=== PATIENT | female | born 1970 | race Caucasian/White ===

== ENCOUNTER 2020-05-30 19:25 | Emergency (ER) | payer OTHER ==
--- OUTSIDE RECORDS SUMMARY | 2020-05-30 19:27 | XMS REPORT | Summary of Care ---
:1970 Author Organization [facility] Address [address] [place] [address] Care Team Providers Name Role Phone MD Srikanth Primary Care Provider Reason for Visit Reason Comments Refill Request Encounter Details Date Type Department Care Team Description 03/26/2020 Refill [facility] Family Medicine Ross Anglin MD Refill Request - [address] [place] [address] [place] [address] [phone] Allergies No Known Allergiesdocumented as of this encounter (statuses as of 03/29/2020) Medications Medication Sig Dispensed Refills Start Date End Date Status lactulose 20 gram Take 1 Packet by 3 Packet 0 04/17/2017 Active packet mouth 3 (three) times daily. albuterol 90 Inhale 2 Puffs 8.5 g 0 05/06/2017 A ctive mcg/actuation inhaler every 4 (four) hours as needed for Wheezing or Shortness of Breath. SERTraline 100 mg TAKE 1 TABLET BY 0 08/20/2017 Active tablet MOUTH EVERY MORNING PROPRANOLOL HCL Take by mouth. 0 Active (PROPRANOLOL ORAL) busPIRone 10 mg tablet Take 1 tablet by 90 tablet 0 11/14/2017 Active mouth 3 (three) times daily. levothyroxine 75 mcg Take 1 tablet by 90 tablet 1 07/07/2019 Active tabletIndications: mouth every Hypothyroidism, morning. unspecified type ALPRAZOLAM 1 mg TAKE 1 TABLET BY 90 tablet 1 01/26/2020 Active tabletIndications: MOUTH THREE TIMES Anxiety A DAY NEEDED diclofenac 75 mg EC Take 1 tablet by 60 tablet 1 02/11/2020 Active tabletIndications: mouth 2 (two) Chronic pain of left times daily with ankle meals. PHENYTOIN EXTENDED 100 TAKE 3 CAPSULES 90 capsule 0 02/26/2020 Active mg capsuleIndications: BY MOUTH EVERY Seizure disorder DAY documented as of this encounter (statuses as of 03/29/2020) Active Problems Problem Noted Date Seizure disorder 10/16/2016 Anxiety 10/16/2016 Hypothyroidism 10/16/2016 Low vitamin B12 level 10/16/2016 documented as of this encounter (statuses as of 03/29/2020) Social History Tobacco Use Types Packs/Day Years Used Date Light Tobacco Smoker Smokeless Tobacco: Never Used Alcohol Use Drinks/Week oz/Week Comments No Sex Assigned at Date Recorded Not on file documented as of this encounter Last Filed Vital Signs Not on filedocumented in this encounter Plan of Treatment Health Maintenance Due Date Last Done Comments PNEUMOCOCCAL 0-64 YEARS COMBINED SERIES (1 of - 11/24/1977 PPSV23) DTaP,Tdap,and Td Vaccines (1 - Tdap) 11/24/1990 PAP SMEAR 11/24/1992 Breast Cancer Screening (MAMMOGRAM) 01/17/2017 01/18/2016 INFLUENZA VACCINE (#1) 2020 Depression Screening 12/22/2020 12/23/2019 Colorectal Cancer Screening 11/24/2021 documented as of this encounter Results Not on filedocumented in this encounter Visit Diagnoses Diagnosis Anxiety Anxiety state, unspecified documented in this encounter Insurance Payer Benefit Plan / Subscriber ID Effective Phone Address T ype Group Dates [employer]ER[employer]/KARRI [id number] 2020-Kristyn Coronel [facility] documented as of this encounter
--- OUTSIDE RECORDS SUMMARY | 2020-05-30 19:27 | XMS REPORT | Summary of Care ---
:1970 Author Organization [facility] Address [address] [place] [address] Care Team Providers Name Role Phone MD Srikanth Primary Care Provider Reason for Visit Reason Comments Refill Request Encounter Details Date Type Department Care Team Description 03/30/2020 Refill [facility] Family Medicine Ross Anglin MD Refill Request - [address] [place] [address] [place] [address] [phone] Allergies No Known Allergiesdocumented as of this encounter (statuses as of 03/31/2020) Medications Medication Sig Dispensed Refills Start Date End Date Status lactulose 20 gram Take 1 Packet 3 Packet 0 04/17/2017 Active packet by mouth 3 (three) times daily. albuterol 90 Inhale 2 Puffs 8.5 g 0 05/06/2017 A ctive mcg/actuation every 4 (four) inhaler hours as needed for Wheezing or Shortness of Breath. SERTraline 100 mg TAKE 1 TABLET 0 08/20/2017 Active tablet BY MOUTH EVERY MORNING PROPRANOLOL HCL Take by mouth. 0 Active (PROPRANOLOL ORAL) busPIRone 10 mg Take 1 tablet 90 tablet 0 11/14/2017 Active tablet by mouth 3 (three) times daily. diclofenac 75 mg EC Take 1 tablet 60 tablet 1 02/11/2020 Active tabletIndications: by mouth 2 Chronic pain of (two) times left ankle daily with meals. PHENYTOIN EXTENDED TAKE 3 CAPSULES 90 capsule 0 03/29/2020 Active 100 mg BY MOUTH EVERY capsuleIndications: DAY Seizure disorder ALPRAZOLAM 1 mg TAKE 1 TABLET 90 tablet 1 03/31/2020 Active tabletIndications: BY MOUTH THREE Anxiety TIMES A DAY NEEDED LEVOTHYROXINE 75 TAKE 1 TABLET 90 tablet 0 03/30/2020 Active mcg BY MOUTH EVERY tabletIndications: DAY IN THE Hypothyroidism, MORNING unspecified type levothyroxine 75 Take 1 tablet 90 tablet 1 07/07/2019 03/30/20 2 Discontinued mcg by mouth every 0 tabletIndications: morning. Hypothyroidism, unspecified type ALPRAZOLAM 1 mg TAKE 1 TABLET 90 tablet 1 01/26/2020 Discontinued tabletIndications: BY MOUTH THREE 0 Anxiety TIMES A DAY NEEDED documented as of this encounter (statuses as of 03/31/2020) Active Problems Problem Noted Date Seizure disorder 10/16/2016 Anxiety 10/16/2016 Hypothyroidism 10/16/2016 Low vitamin B12 level 10/16/2016 documented as of this encounter (statuses as of 03/31/2020) Social History Tobacco Use Types Packs/Day Years Used Date Light Tobacco Smoker Smokeless Tobacco: Never Used Alcohol Use Drinks/Week oz/Week Comments No Sex Assigned at Date Recorded Not on file documented as of this encounter Last Filed Vital Signs Not on filedocumented in this encounter Miscellaneous Notes Telephone Encounter - Clau Hernandez LVN - 03/30/2020 3:40 PM CDT 2 months ago (01/26/2020) ALPRAZOLAM 1 mg tablet TAKE 1 TABLET BY MOUTH THREE TIMES A DAY NEEDED Dispense: 90 tablet Refills: 1 Start: 01/26/2020 [id number] [place] [id number] Recent Visits Date Type Provider Dept 12/23/19 Office Visit Nash Jaffe MD [facility] 07/07/19 Office Visit Ross Duke MD [facility] 10/23/18 Office Visit Ross Duke MD [facility] Showing recent visits within past 540 days with a meds authorizing provider and meeting all other requirements Future Appointments No visits were found meeting these conditions. Showing future appointments within next 150 days with a meds authorizing provider and meeting all other requirements documented in this encounter Plan of Treatment Health [...] Visit Diagnoses Diagnosis Anxiety Anxiety state, unspecified Hypothyroidism, unspecified type documented in this encounter Insurance Payer Benefit Plan / Subscriber ID Effective Phone Address T ype Group Dates [facility] [id number] 2020-Kristyn Coronel [facility] documented as of this encounter
--- OUTSIDE RECORDS SUMMARY | 2020-05-30 19:27 | XMS REPORT | Summary of Care ---
:1970 Author Organization [facility] Address [address] [place] [address] Care Team Providers Name Role Phone MD Srikanth Primary Care Provider Reason for Visit Reason Comments Refill Request Encounter Details Date Type Department Care Team Description 03/28/2020 Refill [facility] Family Medicine Ross Anglin MD Refill Request - [address] [place] [address] [place] [address] [phone] Allergies No Known Allergiesdocumented as of this [...] tablet by mouth 3 (three) times daily. levothyroxine 75 Take 1 tablet 90 tablet 1 07/07/2019 Active mcg by mouth every tabletIndications: morning. Hypothyroidism, unspecified type ALPRAZOLAM 1 mg TAKE 1 TABLET 90 tablet 1 01/26/2020 Active tabletIndications: BY MOUTH THREE Anxiety TIMES A DAY NEEDED diclofenac 75 mg EC Take 1 tablet 60 tablet 1 02/11/2020 Active tabletIndications: by mouth 2 Chronic pain of (two) times left ankle daily with meals. PHENYTOIN EXTENDED TAKE 3 CAPSULES 90 capsule 0 03/29/2020 Active 100 mg BY MOUTH EVERY capsuleIndications: DAY Seizure disorder PHENYTOIN EXTENDED TAKE 3 CAPSULES 90 capsule 0 02/26/2020 Discontinued 100 mg BY MOUTH EVERY 0 capsuleIndications: DAY Seizure disorder documented as of this encounter (statuses as [...] filedocumented in this encounter Visit Diagnoses Diagnosis Seizure disorder Unspecified epilepsy without mention of intractable epilepsy documented in this encounter Insurance Payer Benefit Plan / Subscriber ID Effective Phone Address T ype Group Dates [employer]/KARRI [id number] 2020-Kristyn pruitt [facility] - MEDICARE [facility] MANAGED MEDICARE ADVANTAGE documented as of this encounter
--- OUTSIDE RECORDS SUMMARY | 2020-05-30 19:28 | XMS REPORT | Summary of Care ---
:1970 Author Organization [facility] Address [address] [place] [address] Care Team Providers Name Role Phone MD Srikanth Primary Care Provider Reason for Visit Reason Comments Anxiety Encounter Details Date Type Department Care Team Description 04/27/2020 Telemedicine Visit [facility] Family Ross Duke Anxiety (Primary Dx); Medicine - Estelle BARRON Drug-induced constipation [address] [place] [phone] Allergies No Known Allergiesdocumented as of this encounter (statuses as of 04/27/2020) Medications Medication Sig Dispensed Refills Start Date [...] MOUTH EVERY MORNING PROPRANOLOL HCL Take by 0 Acti ve (PROPRANOLOL ORAL) mouth. busPIRone 10 mg Take 1 tablet 90 tablet 0 11/14/2017 Active tablet by mouth 3 (three) times daily. LEVOTHYROXINE 75 TAKE 1 TABLET 90 tablet 0 03/30/2020 Active mcg BY MOUTH EVERY tabletIndications: DAY IN THE Hypothyroidism, MORNING unspecified type DICLOFENAC 75 mg TAKE 1 TABLET 60 tablet 1 04/14/2020 Active EC BY MOUTH TWICE tabletIndications: A DAY WITH Chronic pain of MEALS left ankle PHENYTOIN EXTENDED TAKE 3 90 capsule 0 04/23/2020 Active 100 mg CAPSULES BY capsuleIndications MOUTH EVERY : Seizure disorder DAY ALPRAZolam 1 mg TAKE 1 TABLET 90 tablet 2 04/27/2020 Active tabletIndications: BY MOUTH THREE Anxiety TIMES A DAY NEEDED linaCLOtide Take 1 capsule 30 capsule 2 04/27/2020 A ctive (LINZESS) 145 mcg by mouth capsuleIndications daily. : Drug-induced constipation ALPRAZOLAM 1 mg TAKE 1 TABLET 90 tablet 1 03/31/2020 04/27/20 Discontinued tabletIndications: BY MOUTH THREE 20 (Reorder) Anxiety TIMES A DAY NEEDED documented as of this encounter (statuses as of 04/27/2020) Active Problems Problem Noted Date Seizure disorder 10/16/2016 Anxiety 10/16/2016 Hypothyroidism 10/16/2016 Low vitamin B12 level 10/16/2016 documented as of this encounter (statuses as of 04/27/2020) Social History Tobacco Use Types Packs/Day Years Used Date Light Tobacco Smoker Smokeless Tobacco: Never Used Alcohol Use Drinks/Week oz/Week Comments No Sex Assigned at Date Recorded Not on file documented as of this encounter Last Filed Vital Signs Not on filedocumented in this encounter Progress Notes Ross Duke MD - 04/27/2020 10:00 AM CDT TELEHEALTH NOTE Verbal consent obtained from Patient: Katy Holman due to the COVID-19 pandemic for telehealthservices provided below. Communication with patient was conducted via Telephone due to patient unable to obtain video call option. Location of Patient: Home Location of Provider: Office Date of Service: 04/27/2020 Chief Complaint: anxiety HPI: Katy Holman is a 49 year old female with anxiety, chronic constipation, would like to get back on linzess Past Medical History: Diagnosis Date Hypothyroidism Mitral valve prolapse Seizures MEDICATIONS: Current Outpatient Medications Medication Sig Dispense Refill PHENYTOIN EXTENDED 100 mg capsule TAKE 3 CAPSULES BY MOUTH EVERY DAY 90 capsule 0 DICLOFENAC 75 mg EC tablet TAKE 1 TABLET BY MOUTH TWICE A DAY WITH MEALS 60 tablet 1 ALPRAZOLAM 1 mg tablet TAKE 1 TABLET BY MOUTH THREE TIMES A DAY NEEDED 90 tablet 1 LEVOTHYROXINE 75 mcg tablet TAKE 1 TABLET BY MOUTH EVERY DAY IN THE MORNING 90 tablet 0 busPIRone 10 mg tablet Take 1 tablet by mouth 3 (three) times daily. 90 tablet 0 PROPRANOLOL HCL (PROPRANOLOL ORAL) Take by mouth. SERTraline 100 mg tablet TAKE 1 TABLET BY MOUTH EVERY MORNING 0 albuterol 90 mcg/actuation inhaler Inhale 2 Puffs every 4 (four) hours as needed for Wheezing orShortness of Breath. 8.5 g 0 lactulose 20 gram packet Take 1 Packet by mouth 3 (three) times daily. 3 Packet 0 No current facility-administered medications for this visit. ROS Constipation, otherwise ok TELEHEALTH EXAM Alert,no distress ASSESSMENT/ PLAN Katy Arabella Holman is a 49 year old female with PMH as above presenting with: anxiety, stable, medication refill, medication related constipation, linzess After visit summary (AVS ) documentation will be available through [employer] for this encounter. A total of 15 minutes was spent on the Telephone due to patient unable to obtain video call option. Ross Duke MD documented in this encounter Plan of Treatment [...] in this encounter Visit Diagnoses Diagnosis Anxiety - Primary Anxiety state, unspecified Drug-induced constipation Other constipation documented in this encounter Insurance Payer Benefit Plan / Subscriber ID Effective Phone Address T ype Group Dates [facility] [id number] 2020-Kristyn Coronel [facility] - MEDICARE HMO MANAGED MEDICARE ADVANTAGE documented as of this encounter
--- OUTSIDE RECORDS SUMMARY | 2020-05-30 19:28 | XMS REPORT | Summary of Care ---
:1970 Author Organization [facility] Address [address] [place] [address] Care Team Providers Name Role Phone MD Srikanth Primary Care Provider Reason for Visit Reason Comments Refill Request Encounter Details Date Type Department Care Team Description 05/19/2020 Refill [facility] Family Medicine Ross Anglin MD Refill Request - [address] [place] [address] [place] [address] [phone] Allergies No Known Allergiesdocumented as of this encounter (statuses as of 05/19/2020) Medications Medication Sig Dispensed Refills Start Date [...] Hypothyroidism, MORNING unspecified type DICLOFENAC 75 mg EC TAKE 1 TABLET 60 tablet 1 04/14/2020 Active tabletIndications: BY MOUTH TWICE Chronic pain of A DAY WITH left ankle MEALS ALPRAZolam 1 mg TAKE 1 TABLET 90 tablet 2 04/27/2020 Active tabletIndications: BY MOUTH THREE Anxiety TIMES A DAY NEEDED linaCLOtide Take 1 capsule 30 capsule 2 04/27/2020 A ctive (LINZESS) 145 mcg by mouth daily. capsuleIndications: Drug-induced constipation PHENYTOIN EXTENDED TAKE 3 CAPSULES 90 capsule 0 05/19/2020 Active 100 mg BY MOUTH EVERY capsuleIndications: DAY Seizure disorder PHENYTOIN EXTENDED TAKE 3 CAPSULES 90 capsule 0 04/23/2020 Discontinued 100 mg BY MOUTH EVERY 0 capsuleIndications: DAY Seizure disorder documented as of this encounter (statuses as of 05/19/2020) Active Problems Problem Noted Date Seizure disorder 10/16/2016 Anxiety 10/16/2016 Hypothyroidism 10/16/2016 Low vitamin B12 level 10/16/2016 documented as of this encounter (statuses as of 05/19/2020) Social History Tobacco Use Types Packs/Day Years [...] Address T ype Group Dates [employer]/KARRI [id number] 2020-Kristyn pruitt [facility]IC[facility] documented as of this encounter
--- OUTSIDE RECORDS SUMMARY | 2020-05-30 19:28 | XMS REPORT | Summary of Care ---
:1970 Author Organization [facility] Address [address] [place] [address] Care Team Providers Name Role Phone MD Srikanth Primary Care Provider Reason for Visit Reason Comments Refill Request Encounter Details Date Type Department Care Team Description 04/14/[address] [facility] Orthopaedic Julius Becerra MD Refill Request Surgery- [place] [address] [facility] [address] [facility], [place] [address] [place] [address] [phone] Allergies No Known Allergiesdocumented as of this encounter (statuses as of 04/14/2020) Medications Medication Sig Dispensed Refills Start Date [...] tablet by mouth 3 (three) times daily. PHENYTOIN EXTENDED TAKE 3 CAPSULES 90 capsule [...] of A DAY WITH left ankle MEALS diclofenac 75 mg EC Take 1 tablet 60 tablet 1 02/11/202004/14 Discontinued tabletIndications: by mouth 2 0 Chronic pain of (two) times left ankle daily with meals. documented as of this encounter (statuses as of 04/14/2020) Active Problems Problem Noted Date Seizure disorder 10/16/2016 Anxiety 10/16/2016 Hypothyroidism 10/16/2016 Low vitamin B12 level 10/16/2016 documented as of this encounter (statuses as of 04/14/2020) Social History Tobacco Use Types Packs/Day Years [...] filedocumented in this encounter Visit Diagnoses Diagnosis Chronic pain of left ankle documented in this encounter Insurance Payer Benefit Plan / Subscriber ID Effective Phone Address T ype Group Dates [employer]/KARRI [id number] 2020-Kristyn Coronel [facility] documented as of this encounter
--- OUTSIDE RECORDS SUMMARY | 2020-05-30 19:28 | XMS REPORT | Summary of Care ---
:1970 Author Organization [facility] Address [address] [place] [address] Care Team Providers Name Role Phone MD Srikanth Primary Care Provider Reason for Visit Reason Comments Refill Request Encounter Details Date Type Department Care Team Description 05/27/2020 Refill [facility] Family Medicine Ross Anglin MD Refill Request - [address] [place] [address] [place] [address] [phone] Allergies No Known Allergiesdocumented as of this encounter (statuses as of 05/27/2020) Medications Medication Sig Dispensed Refills Start Date [...] 11/14/2017 Active mouth 3 (three) times daily. LEVOTHYROXINE 75 mcg TAKE 1 TABLET BY 90 tablet 0 03/30/2020 Active tabletIndications: MOUTH EVERY DAY Hypothyroidism, IN THE MORNING unspecified type DICLOFENAC 75 mg EC TAKE 1 TABLET BY 60 tablet 1 04/14/2020 Active tabletIndications: MOUTH TWICE A DAY Chronic pain of left WITH MEALS ankle ALPRAZolam 1 mg TAKE 1 TABLET BY 90 tablet 2 04/27/2020 Active tabletIndications: MOUTH THREE TIMES Anxiety A DAY NEEDED linaCLOtide (LINZESS) Take 1 capsule by 30 capsule 2 0 Active 145 mcg mouth daily. capsuleIndications: Drug-induced constipation PHENYTOIN EXTENDED 100 TAKE 3 CAPSULES 90 capsule 0 05/19/2020 Active mg capsuleIndications: BY MOUTH EVERY Seizure disorder DAY documented as of this encounter (statuses as of 05/27/2020) Active Problems Problem Noted Date Seizure disorder 10/16/2016 Anxiety 10/16/2016 Hypothyroidism 10/16/2016 Low vitamin B12 level 10/16/2016 documented as of this encounter (statuses as of 05/27/2020) Social History Tobacco Use Types Packs/Day Years [...] filedocumented in this encounter Visit Diagnoses Diagnosis Hypothyroidism, unspecified type documented in this encounter Insurance Payer Benefit Plan / Subscriber ID Effective Phone Address T ype Group Dates [employer]/KARRI [id number] 2020-Kristyn pruitt [facility] - MEDICARE [facility] MANAGED MEDICARE ADVANTAGE documented as of this encounter
--- OUTSIDE RECORDS SUMMARY | 2020-05-30 19:28 | XMS REPORT | Summary of Care ---
:1970 Author Organization [facility] Address [address] [place] [address] Care Team Providers Name Role Phone MD Srikanth Primary Care Provider Reason for Visit Reason Comments Refill Request Encounter Details Date Type Department Care Team Description 04/22/2020 Refill [facility] Family Medicine Ross Anglin MD Refill Request - [address] [place] [address] [place] [address] [phone] Allergies No Known Allergiesdocumented as of this encounter (statuses as of 04/23/2020) Medications Medication Sig Dispensed Refills Start Date [...] tablet by mouth 3 (three) times daily. ALPRAZOLAM 1 mg TAKE 1 TABLET 90 [...] of A DAY WITH left ankle MEALS PHENYTOIN EXTENDED TAKE 3 CAPSULES 90 capsule 0 04/23/2020 Active 100 mg BY MOUTH EVERY capsuleIndications: DAY Seizure disorder PHENYTOIN EXTENDED TAKE 3 CAPSULES 90 capsule 0 03/29/2020 Discontinued 100 mg BY MOUTH EVERY 0 capsuleIndications: DAY Seizure disorder documented as of this encounter (statuses as of 04/23/2020) Active Problems Problem Noted Date Seizure disorder 10/16/2016 Anxiety 10/16/2016 Hypothyroidism 10/16/2016 Low vitamin B12 level 10/16/2016 documented as of this encounter (statuses as of 04/23/2020) Social History Tobacco Use Types Packs/Day Years Used Date Light Tobacco Smoker Smokeless Tobacco: Never Used Alcohol Use Drinks/Week oz/Week Comments No Sex Assigned at Date Recorded Not on file documented as of this encounter Last Filed Vital Signs Not on filedocumented in this encounter Plan of Treatment Date Type Specialty Care Team Description 04/27/2020 Telemedicine Visit Family Medicine Elva Duke MD [address] [place] [address] [phone] Health Maintenance Due Date Last Done Comments [...] Phone Address T ype Group Dates [facility] [id number] 2020-Kristyn pruitt [facility] - MEDICARE [facility] MANAGED MEDICARE ADVANTAGE documented as of this encounter
[2020-05-30 19:54] LABS: Urine Blood NEGATIVE (NEG); Urine Glucose NEGATIVE (NEG); Urine Protein NEGATIVE (NEG); Urine Specific Gravity >1.030 (1.005-1.030)
[2020-05-30 19:56] LABS: Absolute Lymphocytes (CBC) 2.9 K/uL (0.7-4.9); Basophils % 0.7 % (0-1.3); Hematocrit 39.2 % (36.0-45.0); Lymphocytes % 27.9 % (15.3-44.8); MPV 7.6 fL (7.6-11.3)
[2020-05-30] MEDS ORDERED: MORPHINE 4 MG/ML SYR ONE (20:06)
[2020-05-30] MEDS ORDERED: ONDANSETRON 4 MG/2 ML VIAL ONE (20:07)
--- NOTE | 2020-05-30 20:32 | RAD REPORT ---
EXAM DESCRIPTION: CT - Stone Protocol - 05/30/2020 8:05 pm CLINICAL HISTORY: ABD PAIN COMPARISON: No comparisons TECHNIQUE: Axial 3 mm thick images were obtained without oral or IV contrast. The [id number] span s the entirety of the system including uppermost abdomen and lung bases. All CT scans are performed using dose optimization technique as appropriate and may include automated exposure control or mA/KV adjustment according to patient size. FINDINGS: Trace pleural effusions seen in each lung base. No hydronephrosis is present and no obstructing ureteral calculi. No suspicious renal masses. Isodens e masses and pyelonephritis are not excluded on a stone protocol CT scan. No significant adrenal find ing. No urinary bladder suspicious finding. Uterus is absent. No ovarian abnormality. Imaged portions of the liver, spleen and pancreas show no suspicious findings on non-contrast imaging . Cholecystectomy clips are present. No biliary tree dilatation. Large quantity of food distends the stomach. No gastric wall thickening or gastric wall mass. No dila romeo large or small bowel loops. Moderate stool volume in the right-side of the colon. The appendix is identified normal. No active GI process seen. No mass or bulky lymphadenopathy. A 3 centimeter periumbilical midline ventral hernia present contain ing only fat no mass or bulky lymphadenopathy. No free air, free fluid or inflammatory stranding. No significant bony abnormality. IMPRESSION: No appendicitis or other acute GI process. 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 No abnormality that would explain right lower quadrant pain pattern.
--- NOTE | 2020-05-30 20:41 | EDPHYS ---
Physician Documentation [facility] Name: Katy Holman Age: 49 yrs Sex: Female : 1970 Arrival Date: 05/30/2020 Time: 19:28 Bed 19 Private MD: ED Physician Brown Norton HPI: 05/30 20:58 This 49 yrs old Female presents to ER via Ambulatory with complaints of Lower kb Abdominal Pain. 21:00 The patient presents with abdominal pain right lower quadrant. Onset: The kb symptoms/episode began/occurred 3 hour(s) ago. The symptoms do not radiate. Associated signs and symptoms: none. The symptoms are described as constant. Modifying factors: The symptoms are alleviated by nothing, the symptoms are aggravated by pressure. Severity of pain: At its worst the pain was moderate in the emergency department the pain is unchanged. The patient has not experienced similar symptoms in the past. The patient has not recently seen a physician. 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 - Social history:: Smoking status: Patient reports the use of cigarette tobacco products, smokes one-half pack cigarettes per day. ROS: 20:57 Constitutional: Negative for fever, chills, and weight loss, Cardiovascular: Negative kb for chest pain, palpitations, and edema, Respiratory: Negative for shortness of breath, cough, wheezing, and pleuritic chest pain, : Negative for injury, bleeding, discharge, and swelling, MS/Extremity: Negative for injury and deformity, Skin: Negative for injury, rash, and discoloration, Neuro: Negative for headache, weakness, numbness, tingling, and seizure. 20:57 Abdomen/GI: Positive for abdominal pain, Negative for nausea, vomiting, and diarrhea. Exam: 20:57 Constitutional: This is a well developed, well nourished patient who is awake, alert, kb and in no acute distress. Head/Face: Normocephalic, atraumatic. Chest/axilla: Normal chest wall appearance and motion. Nontender with no deformity. No lesions are appreciated. Cardiovascular: Regular rate and rhythm with a normal S1 and S2. No gallops, murmurs, or rubs. Normal PMI, no JVD. No pulse deficits. Respiratory: Lungs have equal breath sounds bilaterally, clear to auscultation and percussion. No rales, rhonchi or wheezes noted. No increased work of breathing, no retractions or nasal flaring. Back: No spinal tenderness. No costovertebral tenderness. Full range of motion. Skin: Warm, dry with normal turgor. Normal color with no rashes, no lesions, and no evidence of cellulitis. MS/ Extremity: Pulses equal, no cyanosis. Neurovascular intact. Full, normal range of motion. Neuro: Awake and alert, GCS 15, oriented to person, place, time, and situation. Cranial nerves II-XII grossly intact. Motor strength 5/5 in all extremities. Sensory grossly intact. Cerebellar exam normal. Normal gait. 20:57 Abdomen/GI: Inspection: abdomen appears normal, Bowel sounds: normal, in all quadrants, Palpation: soft, in all quadrants, moderate abdominal tenderness, in the right lower quadrant. Vital Signs: 19:32 BP 120 / 74; Pulse 87; Resp 16 S; Temp 97.8(TE); Pulse Ox 98% on R/A; Weight 81.65 kg ca1 (R); Height 5 ft. 4 in. (162.56 cm) (R); Pain 5/10; 20:40 BP 122 / 68; Pulse 80; Resp 18; Pulse Ox 98% on R/A; ea 19:32 Body Mass Index 30.90 (81.65 kg, 162.56 cm) ca1 MDM: 19:36 Patient medically screened. kb 20:57 Data reviewed: vital signs, nurses notes. Data interpreted: Pulse oximetry: on room air kb is 98 %. Interpretation: normal. Counseling: I had a detailed discussion with the patient and/or guardian regarding: the historical points, exam findings, and any diagnostic results supporting the discharge/admit diagnosis, lab results, radiology results, the need for outpatient follow up, a family practitioner, to return to the emergency department if symptoms worsen or persist or if there are any questions or concerns that arise at home. 05/30 19:35 Order name: Basic Metabolic Panel; Complete Time: 20:12 kb 05/30 19:35 Order name: CBC with Diff; Complete Time: 20:10 kb 05/30 19:44 Order name: CT Stone Protocol; Complete Time: 20:35 kb 05/30 19:49 Order name: Urine --Ancillary (enter results); Complete Time: 19:58 tt3 05/30 19:49 Order name: Urine Dipstick--Ancillary (enter results); Complete Time: 19:58 tt3 05/30 19:35 Order name: IV Saline Lock; Complete Time: 19:52 kb 05/30 19:35 Order name: Labs collected and sent; Complete Time: 19:53 kb 05/30 19:35 Order name: Urine Dipstick-Ancillary (obtain specimen); Complete Time: 19:53 kb Administered Medications: 19:55 Drug: Zofran (Ondansetron) 4 mg Route: IVP; Site: left antecubital; ea 19:58 Drug: morphine 4 mg {Note: rass 0.} Route: IVP; Site: left antecubital; ea Disposition: 05/31 02:12 Co-signature as Attending Physician, Brown Norton MD. 7 Disposition: 05/30/20 20:40 Discharged to Home. Impression: Lower abdominal pain, unspecified. - Condition is Stable. - Discharge Instructions: Abdominal Pain, Adult, [id number], Muscle Strain, Tqvs-al-[id number]. - Prescriptions for Diclofenac Sodium 75 mg Oral Tablet, Delayed Release (E.C.) - take 1 tablet by ORAL route 2 times per day As needed; 30 tablet. - Medication Reconciliation Form, Thank You Letter, Antibiotic Education, Prescription Opioid Use form. - Follow up: Emergency Department; When: As needed; Reason: Worsening of condition. Follow up: Private Physician; When: 2 - 3 days; Reason: Recheck today's complaints, Continuance of care, Re-evaluation by your physician. Signatures: Dispatcher [employer] Stephanie Cam FNP-C FNP-Ckb Antunez, Elena, RN RN ea Acob, Cheryl, RN RN ca1 Holmes, Maurice, MD MD [id number] Corrections: (The following items were deleted from the chart) 05/30 20:47 20:40 05/30/2020 20:40 Discharged to Home. Impression: Lower abdominal pain, ea unspecified. Condition is Stable. Forms are Medication Reconciliation Form, Thank You Letter, Antibiotic Education, Prescription Opioid Use. Follow up: Emergency Department; When: As needed; Reason: Worsening of condition. Follow up: Private Physician; When: 2 - 3 days; Reason: Recheck today's complaints, Continuance of care, Re-evaluation by your physician. kb
--- NOTE | 2020-05-30 20:41 | ER ---
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 ca1 Pain is intermittent, sharp and jabbing. Denies N/V/D. Denies urinary symptoms. Coronavirus screen: Client denies travel out of the [place] in the last 14 days. At this time, the client does not indicate any symptoms associated with coronavirus-19. Ebola Screen: Patient negative for fever greater than or equal to 101.5 degrees Fahrenheit, and additional compatible Ebola Virus Disease symptoms Patient denies exposure to infectious person. Patient denies travel to an Ebola-affected area in the 21 days before illness onset. No symptoms or risks identified at this time. Initial Sepsis Screen: Does the patient meet any 2 criteria? No. Patient's initial sepsis screen is negative. Does the patient have a suspected source of infection? No. Patient's initial sepsis screen is negative. Risk Assessment: Do you want to hurt yourself or someone else? Patient reports no desire to harm self or others. Onset of symptoms was May 30, 2020. 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 - Social history:: Smoking status: Patient reports the use of cigarette tobacco products, smokes one-half pack cigarettes per day. Screenin:59 Abuse screen: Denies threats or abuse. Nutritional screening: No deficits noted. ea Tuberculosis screening: No symptoms or risk factors identified. Fall Risk IV access (20 points). Assessment: 20:00 Reassessment: Patient and/or family updated on plan of care and expected duration. Pain ea level reassessed. Patient is alert, oriented x 3, equal unlabored respirations, skin warm/dry/pink. Pt taken to CT. 20:45 Reassessment: Patient and/or family updated on plan of care and expected duration. Pain ea level reassessed. Patient is alert, oriented x 3, equal unlabored respirations, skin warm/dry/pink. Discharge instruction given to patient, verbalized the understanding of instruction. Pt left ED ambulatory tolerating well. Pt accompanied by significant other Patient states feeling better. Vital Signs: 19:32 BP 120 / 74; Pulse 87; Resp 16 S; Temp 97.8(TE); Pulse Ox 98% on R/A; Weight 81.65 kg ca1 (R); Height 5 ft. 4 in. (162.56 cm) (R); Pain 5/10; 20:40 BP 122 / 68; Pulse 80; Resp 18; Pulse Ox 98% on R/A; ea 19:32 Body Mass Index 30.90 (81.65 kg, 162.56 cm) ca1 ED Course: 19:28 Patient arrived in ED. bp1 19:29 Stephanie Weaver FNP-C is PHCP. kb 19:29 Brown Norton MD is Attending Physician. kb 19:34 Triage completed. ca1 19:35 Arm band placed on right wrist. ca1 19:39 Porsha Adams, CLYDE is Primary Nurse. ea 19:45 Patient has correct armband on for positive identification. Placed in gown. Bed in low ea position. Call light in reach. Side rails up X2. 19:45 Inserted saline lock: 20 gauge in left antecubital area, using aseptic technique. Blood ea collected. 20:05 CT Stone Protocol In Process Unspecified. EDMS 20:45 IV discontinued, intact, bleeding controlled, No redness/swelling at site. Pressure ea dressing applied. Administered Medications: 19:55 Drug: Zofran (Ondansetron) 4 mg Route: IVP; Site: left antecubital; ea 19:58 Drug: morphine 4 mg {Note: rass 0.} Route: IVP; Site: left antecubital; ea Outcome: 20:40 Discharge ordered by . kb 20:45 Discharged to home ambulatory, with family. ea 20:45 Condition: stable 20:45 Discharge instructions given to patient, Instructed on discharge instructions, follow up and referral plans. Demonstrated understanding of instructions, follow-up care. 20:47 Patient left the ED. ea Signatures: Dispatcher [employer] Stephanie Cam, ELLA SEQUEIRA-Porsha Vazquez RN Diane Kenny ea RN Stephenie Mccabe
[2020-05-30 23:38] VITALS: BP 120/74; TEMP 97.8; O2SAT 98
== END 2020-05-30 20:47 | disposition home or self-care (01) ==
LOC: ER 19:25
DX: R10.31 Right lower quadrant pain (principal); F17.210 Nicotine dependence, cigarettes, uncomplicated
CPT/HCPCS: 85025; 80048; 36415; 81025; 81003; 76377; 74176; 96375; 96374; 99284; J2405

== ENCOUNTER 2020-12-15 03:18 | Emergency (ER) | payer OTHER, SELFPAY ==
[2020-12-15] MEDS ORDERED: PANTOPRAZOLE 40 MG INJ ONE (04:49)
[2020-12-15] MEDS ORDERED: NA CHLORIDE 0.9% 1,000 ML ONE (04:49)
[2020-12-15] MEDS ORDERED: ONDANSETRON 4 MG/2 ML VIAL ONE (04:49)
[2020-12-15 04:56] LABS: Absolute Lymphocytes (CBC) 1.4 K/uL (0.7-4.9); Basophils % 0.5 % (0-1.3); Hematocrit 39.9 % (36.0-45.0); Lymphocytes % 12.1 % (15.3-44.8); MPV 7.5 fL (7.6-11.3); RBC Red Blood Cell Count 4.46 M/uL (3.86-4.86)
--- NOTE | 2020-12-15 06:24 | ER ---
Nurse's Notes [facility] Name: Katy Holman Age: 50 yrs Sex: Female : 1970 Arrival Date: 12/15/2020 Time: 03:19 Bed 19 Private MD: Bubba Castaneda Diagnosis: Vomiting, unspecified;Hematemesis Presentation: 12/15 03:31 Chief complaint: Patient states: she was seen in [facility] earlier yesterday for bb a migraine and vomiting was worked-up and sent home she went to sleep and woke up vomiting blood. She has been feeling ill for several days prior to this and not eating much either. Coronavirus screen: headache, vomiting. Client presents with at least one sign or symptom that may indicate coronavirus-19. Standard/surgical mask placed on the client. Ebola Screen: No symptoms or risks identified at this time. Initial Sepsis Screen: Does the patient meet any 2 criteria? No. Patient's initial sepsis screen is negative. Does the patient have a suspected source of infection? No. Patient's initial sepsis screen is negative. Risk Assessment: Do you want to hurt yourself or someone else? Patient reports no desire to harm self or others. Onset of symptoms was December 15, 2020. 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 - Social history:: Smoking status: Patient/guardian denies using tobacco, Stopped _ months ago 2. - Family history:: not pertinent. - Hospitalizations: : No recent hospitalization is reported. Screenin:57 Abuse screen: Denies threats or abuse. Nutritional screening: No deficits noted. ea Tuberculosis screening: No symptoms or risk factors identified. Fall Risk None identified. Assessment: 04:56 General: Appears uncomfortable, Behavior is calm, cooperative, appropriate for age. ea Pain: Denies pain. Neuro: Level of Consciousness is awake, alert, obeys commands, Oriented to person, place, time. Respiratory: Airway is patent Respiratory effort is even, unlabored, Respiratory pattern is regular, symmetrical. GI: Abdomen is non-distended. Derm: Skin is pink, warm \T\ dry. 06:44 Reassessment: Patient and/or family updated on plan of care and expected duration. Pain ea level reassessed. Patient is alert, oriented x 3, equal unlabored respirations, skin warm/dry/pink. Discharge instruction given to patient verbalized the understanding of instruction. Pt left ED ambulatory accompanied by family, pt tolerating well. Vital Signs: 03:31 BP 126 / 83; Pulse 112; Resp 16 S; Temp 99(O); Pulse Ox 98% on R/A; Weight 90.72 kg bb (R); Height 5 ft. 4 in. (162.56 cm) (R); Pain 0/10; 06:28 BP 126 / 86; Pulse 82; Resp 18; Pulse Ox 99% ; ea 03:31 Body Mass Index 34.33 (90.72 kg, 162.56 cm) bb ED Course: 03:19 Patient arrived in ED. am4 03:19 Bubba Castaneda DO is Private Physician. am4 03:33 Triage completed. bb 03:36 Arm band placed on Patient placed in an exam room, on a stretcher, on pulse oximetry. bb Family accompanied patient. 03:44 Seth Montano MD is Attending Physician. rn 04:27 Porsha Adams, CLYDE is Primary Nurse. ea 04:57 Patient has correct armband on for positive identification. Bed in low position. Call ea light in reach. 04:57 Inserted saline lock: 20 gauge in left antecubital area, using aseptic technique. ea 06:22 Jhonny Vincent MD is Referral Physician. rn 06:30 No provider procedures requiring assistance completed. ea 06:45 IV discontinued, intact, bleeding controlled, No redness/swelling at site. Pressure ea dressing applied. Administered Medications: 04:42 Drug: NS 0.9% 1000 ml Route: IV; Rate: 1000 ml; Site: left antecubital; ea 06:46 Follow up: Response: No adverse reaction; IV Status: Completed infusion; IV Intake: ea 1000ml 04:42 Drug: Zofran (Ondansetron) 4 mg Route: IVP; Site: left antecubital; ea 06:46 Follow up: Response: No adverse reaction ea 04:42 Drug: ProTONIX (pantoprazole) 40 mg Route: IVP; Site: left antecubital; ea 06:46 Follow up: Response: No adverse reaction ea Intake: 06:46 IV: 1000ml; Total: 1000ml. ea Outcome: 06:23 Discharge ordered by . rn 06:45 Discharged to home ambulatory, with family. ea 06:45 Condition: stable 06:45 Discharge instructions given to patient, Instructed on discharge instructions, follow up and referral plans. Demonstrated understanding of instructions, follow-up care. 06:45 Patient left the ED. ea Signatures: Gale Giron RN RN bb Nieto, Roman, MD MD rn Antunez, Elena, RN RN ea Martinez, Ashley am4
--- NOTE | 2020-12-15 06:24 | EDPHYS ---
Physician Documentation [facility] Name: Katy Holman Age: 50 yrs Sex: Female : 1970 Arrival Date: 12/15/2020 Time: 03:19 Bed 19 Private MD: Bubba Castaneda ED Physician Seth Montano HPI: 12/15 05:21 This 50 yrs old Female presents to ER via Wheelchair with complaints of rn Vomiting. 05:21 The patient presents to the emergency department with nausea, vomiting. Onset: The rn symptoms/episode began/occurred yesterday. Possible causes: unknown. The symptoms are aggravated by nothing. The symptoms are alleviated by nothing. Associated signs and symptoms: Pertinent negatives: abdominal pain, fever. Severity of symptoms: At their worst the symptoms were moderate in the emergency department the symptoms have improved. The patient has not experienced similar symptoms in the past. The patient has been recently seen by a physician:. Seen yesterday at [place] [facility], for migraine and vomiting, ct head neg, and bloodwork/UA negative. Reports headache has resolved, but still nauseous, threw up again when woke up this AM and had small amount of blood in it so panicked and came in for eval. Not on blood thinners, no abd pain. . 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 - Social history:: Smoking status: Patient/guardian denies using tobacco, Stopped _ months ago 2. - Family history:: not pertinent. - Hospitalizations: : No recent hospitalization is reported. ROS: 05:21 Constitutional: Negative for fever, chills, and weight loss, Eyes: Negative for injury, rn pain, redness, and discharge, Neck: Negative for injury, pain, and swelling, Cardiovascular: Negative for chest pain, palpitations, and edema, Respiratory: Negative for shortness of breath, cough, wheezing, and pleuritic chest pain, Abdomen/GI: Negative for abdominal pain, diarrhea, and constipation, Back: Negative for injury and pain, : Negative for injury, bleeding, discharge, and swelling, MS/Extremity: Negative for injury and deformity, Skin: Negative for injury, rash, and discoloration, Neuro: Negative for headache, weakness, numbness, tingling, and seizure. Exam: 05:21 Constitutional: This is a well developed, well nourished patient who is awake, alert, rn and in no acute distress. Head/Face: Normocephalic, atraumatic. Eyes: Pupils equal round and reactive to light, extra-ocular motions intact. Periorbital areas with no swelling, redness, or edema. Cardiovascular: Tachycardic, regular Respiratory: No increased work of breathing, no retractions or nasal flaring. Abdomen/GI: soft, non-tender Skin: Warm, dry MS/ Extremity: Pulses equal, no cyanosis. Neuro: Awake and alert, GCS 15, oriented to person, place, time, and situation. Cranial nerves II-XII grossly intact. Motor strength 5/5 in all extremities. Sensory grossly intact. Cerebellar exam normal. Vital Signs: 03:31 BP 126 / 83; Pulse 112; Resp 16 S; Temp 99(O); Pulse Ox 98% on R/A; Weight 90.72 kg bb (R); Height 5 ft. 4 in. (162.56 cm) (R); Pain 0/10; 06:28 BP 126 / 86; Pulse 82; Resp 18; Pulse Ox 99% ; ea 03:31 Body Mass Index 34.33 (90.72 kg, 162.56 cm) bb MDM: 03:44 Patient medically screened. rn 05:36 Differential diagnosis: gastritis, viral gastroenteritis, gastroenteritis, gastritis, rn neisha-real tear, esophagitis. Data reviewed: vital signs, nurses notes, lab test result(s), and as a result, I will discharge patient. Counseling: I had a detailed discussion with the patient and/or guardian regarding: the historical points, exam findings, and any diagnostic results supporting the discharge/admit diagnosis, lab results, the need for outpatient follow up, to return to the emergency department if symptoms worsen or persist or if there are any questions or concerns that arise at home. Response to treatment: the patient's symptoms have markedly improved after treatment, and as a result, I will discharge patient. Response to treatment: tolerates PO, no longer vomiting. Special discussion: I discussed with the patient/guardian in detail that at this point there is no indication for admission to the hospital. It is understood, however, that if the symptoms persist or worsen the patient needs to return immediately for re-evaluation. 06:21 ED course: Pt feels much better, no longer nauseated, no vomiting. Most likely small rn tear after numerous episodes of vomiting and dry heaving. Stable vitals, will dc home with soft/liquid diet and return precautions. . 06:23 ED course: No drop in hemoglobin compared to labs obtained at [facility]. . rn 12/15 04:04 Order name: CBC with Diff; Complete Time: 05:07 rn 12/15 04:04 Order name: Basic Metabolic Panel; Complete Time: 05: rn 12/15 04:04 Order name: IV Start; Complete Time: 05:09 rn Administered Medications: 04:42 Drug: NS 0.9% 1000 ml Route: IV; Rate: 1000 ml; Site: left antecubital; ea 06:46 Follow up: Response: No adverse reaction; IV Status: Completed infusion; IV Intake: ea 1000ml 04:42 Drug: Zofran (Ondansetron) 4 mg Route: IVP; Site: left antecubital; ea 06:46 Follow up: Response: No adverse reaction ea 04:42 Drug: ProTONIX (pantoprazole) 40 mg Route: IVP; Site: left antecubital; ea 06:46 Follow up: Response: No adverse reaction ea Disposition: 12/15/20 06:23 Discharged to Home. Impression: Vomiting, unspecified, Hematemesis. - Condition is Stable. - Discharge Instructions: Gastrointestinal Bleeding, Hematemesis, Neisha-Real Syndrome, Nausea and Vomiting, Adult. - Medication Reconciliation Form, Thank You Letter, Antibiotic Education, Prescription Opioid Use form. - Follow up: Jhonny Vincent MD; When: As needed; Reason: Recheck today's complaints, Re-evaluation by your physician. - Problem is new. - Symptoms have improved. Signatures: Dispatcher [employer] Gale William RN RN bb Nieto, Roman, MD MD rn Antunez, Elena, RN RN ea Corrections: (The following items were deleted from the chart) 06:45 06:23 12/15/2020 06:23 Discharged to Home. Impression: Vomiting, unspecified; ea Hematemesis. Condition is Stable. Forms are Medication Reconciliation Form, Thank You Letter, Antibiotic Education, Prescription Opioid Use. Follow up: Jhonny Vincent; When: As needed; Reason: Recheck today's complaints, Re-evaluation by your physician. Problem is new. Symptoms have improved. rn
[2020-12-15 06:59] VITALS: TEMP 99
[2020-12-15 07:03] VITALS: BP 126/86; O2SAT 99
== END 2020-12-15 06:45 | disposition home or self-care (01) ==
LOC: ER 03:18
DX: K92.0 Hematemesis (principal); E03.9 Hypothyroidism, unspecified; F43.10 Post-traumatic stress disorder, unspecified; Z87.891 Personal history of nicotine dependence
CPT/HCPCS: 36415; 80048; 85025; 96361; 96374; 96375; 99283; C9113; J2405; J7030

== ENCOUNTER 2020-12-15 13:59 | Inpatient (IN) | payer OTHER, SELFPAY ==
[2020-12-15 15:36] LABS: Absolute Lymphocytes (CBC) 1.9 K/uL (0.7-4.9); Basophils % 0.6 % (0-1.3); Hematocrit 39.2 % (36.0-45.0); Lymphocytes % 18.4 % (15.3-44.8); MPV 7.3 fL (7.6-11.3); RBC Red Blood Cell Count 4.38 M/uL (3.86-4.86)
[2020-12-15 15:53] LABS: ALT/SGPT 14 U/L (12-78); AST/SGOT 10 U/L (15-37); Albumin 3.5 g/dL (3.4-5.0); Alkaline Phosphatase 120 U/L (45-117); BUN Blood Urea Nitrogen 7 mg/dL (7-18); Bicarbonate 25 mmol/L (21-32); Bilirubin Direct < 0.1 mg/dL (0-0.2); Bilirubin Total 0.2 mg/dL (0.2-1.0); Glucose Level 113 mg/dL (74-106); Lipase 57 U/L (73-393); Potassium 3.7 mmol/L (3.5-5.1); Protein, Total 6.8 g/dL (6.4-8.2); Sodium Level 142 mmol/L (136-145)
[2020-12-15] MEDS ORDERED: NA CHLORIDE 0.9% 1,000 ML ONE ×2 (16:05→20:49)
[2020-12-15] MEDS ORDERED: PROMETHAZINE INJ 25 MG/ML AMP ONE (16:05)
--- NOTE | 2020-12-15 17:47 | ER ---
Nurse's Notes [facility] [place] Name: Katy Holman Age: 50 yrs Sex: Female : 1970 Arrival Date: 12/15/2020 Time: 14:02 Bed 14 Private MD: Diagnosis: Nausea and vomiting-intractable Presentation: 12/15 14:21 Chief complaint: Patient states: "I am still having vomiting and diarrhea with blood, I aa5 was seen here last night and the doctor said that if doesn't get better I may have to be admitted". Coronavirus screen: diarrhea, nausea. Ebola Screen: Patient negative for fever greater than or equal to 101.5 degrees Fahrenheit, and additional compatible Ebola Virus Disease symptoms. Initial Sepsis Screen: Does the patient meet any 2 criteria? No. Patient's initial sepsis screen is negative. Does the patient have a suspected source of infection? No. Patient's initial sepsis screen is negative. Risk Assessment: Do you want to hurt yourself or someone else? Patient reports no desire to harm self or others. Onset of symptoms was December 2020. 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 - Social history:: Smoking status: Patient denies any tobacco usage or history of. Screenin:40 Abuse screen: Denies threats or abuse. Denies injuries from another. Nutritional kg screening: No deficits noted. Tuberculosis screening: No symptoms or risk factors identified. Fall Risk None identified. No fall in past 12 months (0 pts). No secondary diagnosis (0 pts). IV access (20 points). Ambulatory Aid- None/Bed Rest/Nurse Assist (0 pts). Gait- Normal/Bed Rest/Wheelchair (0 pts) Mental Status- Oriented to own ability (0 pts). Total Ty Fall Scale indicates No Risk (0-24 pts). Assessment: 15:31 General: Appears in no apparent distress. Behavior is calm, cooperative, appropriate kg for age, quiet. Pain: Complains of pain in epigastric area, right upper quadrant and left upper quadrant Pain currently is 3 out of 10 on a pain scale. at worst was 4 out of 10 on a pain scale. level that patient reports is acceptable is 3 out of 10 on a pain scale. Quality of pain is described as soreness Pain began 1 day ago. Neuro: No deficits noted. Cardiovascular: No deficits noted. Heart tones S1 S2. Respiratory: No deficits noted. Airway is patent Respiratory effort is even, unlabored, relaxed, Respiratory pattern is regular, symmetrical, Breath sounds are clear bilaterally. GI: Abdomen is round Stools are reported to be loose, Last BM was December 15, 2020. Bowel sounds present X 4 quads. hyperactive in right upper quadrant, left upper quadrant, right lower quadrant and left lower quadrant Abd is soft X 4 quads Abdomen is tender to palpation X 4 quads. Reports upper abdominal pain, diarrhea, bloody stool, epigastric pain, hemorrhoids, nausea, vomiting, Pt reported blood in vomit. : No deficits noted. : Reports Burning 4 days ago but no longer burning. EENT: No deficits noted. Derm: No deficits noted. Musculoskeletal: No deficits noted. Vital Signs: 14:21 BP 118 / 82; Pulse 89; Resp 18 S; Temp 99.0(TE); Pulse Ox 99% on R/A; Weight 90.72 kg aa5 (R); Height 5 ft. 4 in. (162.56 cm) (R); 14:21 Body Mass Index 34.33 (90.72 kg, 162.56 cm) aa5 ED Course: 14:02 Patient arrived in ED. ds1 14:21 Arm band placed on. aa5 14:22 Triage completed. aa5 15:03 Stephanie Weaver FNP-C [facility]. kb 15:03 Kain Kerns MD is Attending Physician. kb 15:08 Inserted saline lock: 20 gauge in right antecubital area, using aseptic technique. kg 15:18 Ange Kapoor is Primary Nurse. kg 15:40 No provider procedures requiring assistance completed. kg 15:41 Patient has correct armband on for positive identification. Bed in low position. Call kg light in reach. Side rails up X 1. Adult w/ patient. 17:46 Melissa Leo MD is Hospitalizing Provider. kb 23:02 Patient admitted, IV remains in place. jm8 Administered Medications: 15:56 Drug: NS 0.9% 1000 ml Route: IV; Rate: 1000 ml; Site: right antecubital; kg 17:05 Follow up: Response: No adverse reaction; No change in condition; IV Status: Completed kg infusion; IV Intake: 1000ml 15:57 Drug: Phenergan (promethazine) 12.5 mg Route: IVP; Site: right antecubital; kg 17:05 Follow up: Response: No adverse reaction kg Intake: 17:05 IV: 1000ml; Total: 1000ml. kg Outcome: 17:46 Decision to Hospitalize by Provider. kb 23:01 Admitted to Med/surg accompanied by nurse, via wheelchair, Report called to Kadi layne 23:01 Condition: good 23:01 Instructed on the need for admit. 23:03 Patient left the ED. jm8 Signatures: Stephanie Weaver FNP-C UTILITY TELLER-Zakia Hong ds1 Didi Gan RN RN aa5 Jm Lopez RN RN jm8 Aneg Kapoor kg
--- NOTE | 2020-12-15 17:47 | EDPHYS ---
Physician Documentation [facility] Name: Katy River Age: 50 yrs Sex: Female : 1970 Arrival Date: 12/15/2020 Time: 14:02 Bed 14 Private MD: ED Physician Kain Kerns HPI: 12/15 18:28 This 50 yrs old Female presents to ER via Wheelchair with complaints of kb Vomiting. 18:28 The patient presents to the emergency department with nausea, vomiting, diarrhea. kb Onset: The symptoms/episode began/occurred 2 day(s) ago. Possible causes: unknown. The symptoms are aggravated by nothing. The symptoms are alleviated by nothing. Associated signs and symptoms: Pertinent positives: diarrhea, nausea, vomiting. Severity of symptoms: At their worst the symptoms were moderate in the emergency department the symptoms are unchanged. The patient has not experienced similar symptoms in the past. The patient has been recently seen at the [facility] Emergency Department, today, for similar complaints labs were performed. Pt reports continued n/v/d. States she was seen this morning and told to come back for admission if symptoms did not improve. States she hasn't had any more blood in her vomit, but hasn't been able to tolerate any po intake since discharge this morning. 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 - Social history:: Smoking status: Patient denies any tobacco usage or history of. ROS: 18:26 Constitutional: Negative for fever, chills, and weight loss. kb 18:26 Abdomen/GI: Positive for nausea, vomiting, and diarrhea, Negative for abdominal pain. 18:26 All other systems are negative. Exam: 18:26 Constitutional: This is a well developed, well nourished patient who is awake, alert, kb and in no acute distress. Head/Face: Normocephalic, atraumatic. Cardiovascular: Regular rate and rhythm with a normal S1 and S2. No gallops, murmurs, or rubs. No pulse deficits. Respiratory: Respirations even and unlabored. No increased work of breathing, no retractions or nasal flaring. Abdomen/GI: Soft, non-tender. No distention Skin: Warm, dry with normal turgor. Normal color. MS/ Extremity: Pulses equal, no cyanosis. Neurovascular intact. Full, normal range of motion. Neuro: Awake and alert, GCS 15, oriented to person, place, time, and situation. Moves all extremities. Normal gait. Psych: Awake, alert, with orientation to person, place and time. Behavior, mood, and affect are within normal limits. Vital Signs: 14:21 BP 118 / 82; Pulse 89; Resp 18 S; Temp 99.0(TE); Pulse Ox 99% on R/A; Weight 90.72 kg aa5 (R); Height 5 ft. 4 in. (162.56 cm) (R); 14:21 Body Mass Index 34.33 (90.72 kg, 162.56 cm) aa5 MDM: 15:22 Patient medically screened. kb 18:26 Data reviewed: vital signs, nurses notes. Data interpreted: Pulse oximetry: on room air kb is 99 %. Interpretation: normal. Counseling: I had a detailed discussion with the patient and/or guardian regarding: the historical points, exam findings, and any diagnostic results supporting the discharge/admit diagnosis, lab results, the need for further work-up and treatment in the hospital. ED course: Pt still vomiting after phenergan. STates she is not comfortable going home because she doesn't know what to do and will just keep vomiting. 12/15 15:24 Order name: Basic Metabolic Panel; Complete Time: 16:08 kb 12/15 15:24 Order name: CBC with Diff; Complete Time: 15:41 kb 12/15 15:24 Order name: Hepatic Function; Complete Time: 16:08 kb 12/15 15:24 Order name: Lipase; Complete Time: 16:08 kb 12/15 19:11 Order name: Fecal Leukocyte Stain EDWV 12/15 19:10 Order name: CONS Physician Consult EDWV 12/15 19:10 Order name: NPO EDWV 12/15 19:10 Order name: Abdomen EDWV 12/15 19:10 Order name: Abdomen EDWV 12/15 19:11 Order name: Stool Culture EDWV 12/15 20:15 Order name: SARS-COV-2 RT PCR; Complete Time: 20:17 EDWV 12/15 15:24 Order name: IV Saline Lock; Complete Time: 15:42 kb 12/15 15:24 Order name: Labs collected and sent; Complete Time: 15:42 kb 12/15 16:08 Order name: PO challenge; Complete Time: 17:05 kb Administered Medications: 15:56 Drug: NS 0.9% 1000 ml Route: IV; Rate: 1000 ml; Site: right antecubital; kg 17:05 Follow up: Response: No adverse reaction; No change in condition; IV Status: Completed kg infusion; IV Intake: 1000ml 15:57 Drug: Phenergan (promethazine) 12.5 mg Route: IVP; Site: right antecubital; kg 17:05 Follow up: Response: No adverse reaction kg Disposition: 12/15/20 17:46 Hospitalization ordered by Melissa Leo for Observation. Preliminary diagnosis is Nausea and vomiting - intractable. - Bed requested for Telemetry/MedSurg (observation). - Status is Observation. jm8 - Condition is Stable. - Problem is new. - Symptoms are unchanged. Signatures: Dispatcher [employer] [facility] Stephanie Weaver, REHAB PHYSICIAN-C REHAB PHYSICIAN-Ckb Didi Gan, RN RN aa5 Madalyn Mirza RN RN tl1 Jm Lopez RN RN jm8 Ange Kapoor kg Corrections: (The following items were deleted from the chart) 19:27 18:07 CORONAVIRUS+.MICHAZ ordered. [facility] 21:14 17:46 Hospitalization Ordered by Melissa Leo MD for Observation. Preliminary tl1 diagnosis is Nausea and vomiting - intractable. Bed requested for Telemetry/MedSurg (observation). Status is Observation. Condition is Stable. Problem is new. Symptoms are unchanged. kb 23:03 21:14 12/15/2020 17:46 Hospitalization Ordered by Melissa Leo MD for Observation. jm8 Preliminary diagnosis is Nausea and vomiting - intractable. Bed requested for Telemetry/MedSurg (observation). Status is Observation. Condition is Stable. Problem is new. Symptoms are unchanged. tl1
[2020-12-15] MEDS ORDERED: ONDANSETRON 4 MG/2 ML VIAL ONE ×2 (18:41→20:48)
[2020-12-15] MEDS ORDERED: DICYCLOMINE HCL 20 MG/2 ML AMP IM ONE (18:41)
[2020-12-15] MEDS ORDERED: MORPHINE 2 MG/ML SYR IV PRN (19:07)
[2020-12-15] MEDS: PANTOPRAZOLE INJ 80 MG in NA CHLORIDE 0.9% 250 ML IV SCH (20:00)
[2020-12-15] MEDS: NA CHLORIDE 0.9% 1,000 ML IV SCH (20:00)
[2020-12-15] MEDS: ONDANSETRON 4 MG/2 ML VIAL IV PRN (20:33)
[2020-12-15] MEDS ORDERED: PANTOPRAZOLE 40 MG INJ ONE (20:48)
[2020-12-15] MEDS ORDERED: NA CHLORIDE 0.9% 250 ML ONE (20:48)
[2020-12-15 21:18] VITALS: BMI 34.3
[2020-12-16] MEDS ORDERED: DIPHENHYDRAMINE 50 MG/ML VIAL IV ONE (00:03)
[2020-12-16 03:44] LABS: Absolute Lymphocytes (CBC) 2.2 K/uL (0.7-4.9); Hematocrit 35.5 % (36.0-45.0); MPV 7.6 fL (7.6-11.3); RBC Red Blood Cell Count 3.97 M/uL (3.86-4.86)
[2020-12-16 04:01] LABS: ALT/SGPT 13 U/L (12-78); AST/SGOT 7 U/L (15-37); Alkaline Phosphatase 99 U/L (45-117); BUN Blood Urea Nitrogen 7 mg/dL (7-18); Bicarbonate 25 mmol/L (21-32); Bilirubin Total 0.3 mg/dL (0.2-1.0); Glucose Level 98 mg/dL (74-106); Potassium 3.9 mmol/L (3.5-5.1); Protein, Total 5.8 g/dL (6.4-8.2); Sodium Level 143 mmol/L (136-145); Troponin I < 0.02 ng/mL (0.0-0.045)
[2020-12-16] MEDS: PANTOPRAZOLE INJ 80 MG in NA CHLORIDE 0.9% 250 ML IV SCH (06:00)
[2020-12-16] MEDS: NA CHLORIDE 0.9% 1,000 ML IV SCH ×2 (06:00→17:40)
[2020-12-16] MEDS ORDERED: PANTOPRAZOLE INJ 80 MG in NA CHLORIDE 0.9% 250 ML IV SCH (10:00)
--- NOTE | 2020-12-16 10:01 | RAD REPORT ---
EXAM DESCRIPTION: CT - Abdomen Pelvis W Contrast - 12/16/2020 9:40 am CLINICAL HISTORY: Abdominal pain COMPARISON: 2019 TECHNIQUE: Computed axial tomography of the abdomen pelvis was obtained. 100 cc Isovue-300 was admin istered intravenously. Oral contrast was given All CT scans are performed using dose optimization technique as appropriate and may include automated exposure control or mA/KV adjustment according to patient size. FINDINGS: Cholecystectomy. Hysterectomy The liver, spleen, pancreas, adrenal and kidneys appear unremarkable. There is no evidence of diverticulitis. Mild thickening of left colon wall An umbilical hernia contains fat. The sac measures 46 millimeters. The hernia neck measures 14 millim eters IMPRESSION: Mild thickening of the left colon wall consistent with a mild colitis
[2020-12-16] MEDS: ACETAMINOPHEN 500 MG TAB PO PRN ×2 (10:43→17:42)
[2020-12-16] MEDS ORDERED: HOME MED 1 EA UNK (Melatonin [Melatonin] 10 MG Tab.Subl) SL PRN (17:03)
[2020-12-16] MEDS ORDERED: ALPRAZOLAM 1 MG TABLET PO PRN (17:03)
[2020-12-16] MEDS ORDERED: LOPERAMIDE HCL 2 MG CAPSULE PO STA (17:13)
[2020-12-16] MEDS ORDERED: METHYLPREDNISOLONE 125 MG INJ IV ONE (17:16)
[2020-12-16] MEDS ORDERED: MELATONIN 5 MG TABLET PO PRN (17:24)
[2020-12-16] MEDS: PHENYTOIN ER 100 MG CAP PO SCH (17:42)
[2020-12-16] MEDS: ONDANSETRON 4 MG/2 ML VIAL IV PRN (17:54)
[2020-12-16] MEDS ORDERED: GABAPENTIN 600 MG PO SCH (21:00)
[2020-12-16] MEDS: GABAPENTIN 300 MG CAP PO SCH (21:00)
[2020-12-16] MEDS: PRAZOSIN HCL 1 MG CAP PO SCH (21:00)
[2020-12-16] MEDS ORDERED: HOME MED 1 EA UNK (Prazosin Hcl [Prazosin Hcl] 2 MG Capsule) PO SCH (21:00)
[2020-12-16] MEDS: PANTOPRAZOLE 40 MG INJ IVP SCH (21:29)
[2020-12-17] MEDS: NA CHLORIDE 0.9% 1,000 ML IV SCH ×3 (02:00→21:04)
[2020-12-17] MEDS: LEVOTHYROXINE SOD 0.088 MG TAB PO SCH (02:05)
[2020-12-17] MEDS: ACETAMINOPHEN 500 MG TAB PO PRN ×3 (07:52→21:02)
[2020-12-17] MEDS: ONDANSETRON 4 MG/2 ML VIAL IV PRN ×2 (07:56→15:47)
[2020-12-17] MEDS: GABAPENTIN 300 MG CAP PO SCH ×2 (09:00→15:47)
[2020-12-17] MEDS: PANTOPRAZOLE 40 MG INJ IVP SCH ×2 (09:00→21:02)
--- NOTE | 2020-12-17 09:11 | P.HP ---
Certification for Inpatient Patient admitted to: Inpatient With expected LOS: >2 Midnights Patient will require the following post-hospital care: None Practitioner: I am a practitioner with admitting privileges, knowledge of patient current condition, hospital course, and medical plan of care. Services: Services provided to patient in accordance with Admission requirements found in Title 42 Section 412.3 of the Code of Federal Regulations Patient History Date of Service: 12/15/20 Reason for admission: GI bleeding History of Present Illness: Patient is a 50-year-old female came to the hospital with intractable nausea and vomiting. She has similar episode earlier today in came to the emergency room. She was discharged, but she came back with the nausea vomiting worsened. She also noticed bright red blood. She came to the emergency room for further evaluation. In the emergency room, her workup did not reveal any significant abnormalities. Her hemoglobin is stable. Hemodynamically she is stable. Will go and start on her on a Protonix drip and monitor her H&H closely. Allergies No Known Drug Allergies Allergy (Verified 12/15/20 23:28) Unknown Home Medications: ALPRAZolam [Xanax] 1 mg PO TID PRN 12/15/20 Gabapentin [Gralise] 1 tab PO BID 12/15/20 Levothyroxine [Synthroid] 88 mcg PO [id number] 12/15/20 PHENYTOIN ER Cap [Dilantin ER Cap] 3 cap PO DAILY 12/15/20 Prazosin HCl 2 cap PO BEDTIME 12/15/20 Risperidone [Risperdal] 1 mg PO DAILY 12/15/20 Sertraline [Zoloft] 2 tab PO DAILY 12/15/20 Melatonin 10 mg SL PRN PRN 12/16/20 - Past Medical/Surgical History Has patient received pneumonia vaccine in the past: No -: Hypertension -: Seizure disorder -: Hypothyroidism -: Schizophrenia -: Depression Past Surgical History: Patient denies surgical history - Family History Father Family History: Reviewed- Non-Contributory - Social History Smoking Status: Never smoker Place of Residence: Home Review of Systems 10-point ROS is otherwise unremarkable Physical Examination - Vital Signs Temperature: 97.5 F Blood Pressure: 141/65 Pulse: 60 Respirations: 16 Pulse Ox (%): 96 - Physical Exam General: Alert, In no apparent distress, Oriented x3 HEENT: Atraumatic, PERRLA, Mucous membr. moist/pink, EOMI, Sclerae nonicteric Neck: Supple, 2+ carotid pulse no bruit, No LAD, Without JVD or thyroid abnormality Respiratory: Clear to auscultation bilaterally, Normal air movement Cardiovascular: Regular rate/rhythm, Normal S1 S2, No murmurs Gastrointestinal: Normal bowel sounds, Soft and benign, Non-distended, No tenderness Musculoskeletal: No clubbing, No swelling, No tenderness Neurological: Normal gait, Normal speech, Normal strength at 5/5 x4 extr, Normal tone, Sensation intact, Cranial nerves 3-12 intact, Normal affect Lymphatics: No axilla or inguinal lymphadenopathy Assessment & Plan - Problems (Diagnosis) (1) Upper GI bleeding Current Visit: Yes Status: Acute (2) Hypertension Current Visit: Yes Status: Acute (3) Diabetes type 2, controlled Current Visit: Yes Status: Acute (4) Hypothyroidism Current Visit: Yes Status: Acute (5) Depression Current Visit: Yes Status: Acute - Plan Plan: 1. Continue with IV hydration and PPI drip 2. Continue with IV antibiotics 3. Continue with pain control 4. NPO 5. GI consultation 6. Serial H&H, and we will monitor LFTs and lipase along with electrolytes. 7. Strict blood pressure and blood sugar control 8. GI and DVT prophylaxis - Advance Directives Does patient have a Living Will: No Does patient have a Durable POA for Healthcare: No
--- NOTE | 2020-12-17 09:12 | P.PN ---
Subjective Date of Service: 12/16/20 Patient doing well with no new complaints. Tolerating diet. Denies any more bleeding or melanotic stools. Would change Protonix to IV twice a day Review of Systems 10-point ROS is otherwise unremarkable Physical Examination - Vital Signs Temperature: 97.5 F Blood Pressure: 141/65 Pulse: 60 Respirations: 16 Pulse Ox (%): 96 - Physical Exam General: Alert, In no apparent distress, Oriented x3 HEENT: Atraumatic, PERRLA, EOMI Neck: Supple, JVD not distended Respiratory: Clear to auscultation bilaterally, Normal air movement Cardiovascular: Regular rate/rhythm, Normal S1 S2 Gastrointestinal: Normal bowel sounds, No tenderness Musculoskeletal: No tenderness Integumentary: No rashes Neurological: Normal speech, Normal tone, Normal affect Lymphatics: No axilla or inguinal lymphadenopathy - Studies Medications List Reviewed: Yes Assessment & Plan - Problems (Diagnosis) (1) Upper GI bleeding Current Visit: Yes Status: Acute (2) Hypertension Current Visit: Yes Status: Acute (3) Diabetes type 2, controlled Current Visit: Yes Status: Acute (4) Hypothyroidism Current Visit: Yes Status: Acute (5) Depression Current Visit: Yes Status: Acute - Plan Plan: 1. Continue with IV hydration and PPI drip 2. Clear liquid diet and NPO after midnight 3. Continue with pain control 4. NPO after midnight for EGD in a.m. 5. GI consultation appreciated 6. Serial H&H, and we will monitor LFTs and lipase along with electrolytes. 7. Strict blood pressure and blood sugar control 8. GI and DVT prophylaxis Discharge Plan: Home Plan to discharge in: Greater than 2 days - Advance Directives Does patient have a Living Will: No Does patient have a Durable POA for Healthcare: No - Code Status/Comfort Care Code Status Assessed: Yes Code Status: Full Code Critical Care: No Time Spent Managing PTS Care (In Minutes): 35
--- NOTE | 2020-12-17 09:17 | P.DS ---
Discharge Date: 12/17/20 Disposition: ROUTINE DISCHARGE Discharge Condition: GOOD Reason for Admission: GI bleeding Consultations: GI - Problems (1) Upper GI bleeding Current Visit: Yes Status: Acute (2) Hypertension Current Visit: Yes Status: Acute (3) Diabetes type 2, controlled Current Visit: Yes Status: Acute (4) Hypothyroidism Current Visit: Yes Status: Acute (5) Depression Current Visit: Yes Status: Acute Brief History of Present Illness: Patient is a 50-year-old female came to the hospital with intractable nausea and vomiting. She has similar episode earlier today in came to the emergency room. She was discharged, but she came back with the nausea vomiting worsened. She also noticed bright red blood. She came to the emergency room for further evaluation. In the emergency room, her workup did not reveal any significant abnormalities. Her hemoglobin is stable. Hemodynamically she is stable. Will go and start on her on a Protonix drip and monitor her H&H closely. Hospital Course: Patient did well during hospital stay. EGD revealed multiple gastric and duodenal ulcers. Patient will be discharged on PPI twice daily. H pylori obtained. Results pending. Hold off on antibiotic therapy at this time. Patient will follow up with Gastroenterology in 1 week. Refrain from NSAID use. Patient was able to tolerate diet today. Stable for discharge home pretty high Vital Signs/Physical Exam: Temp Pulse Resp BP Pulse Ox 97.5 F 60 16 141/65 H 96 12/17/20 09:12 12/17/20 09:12 12/17/20 09:12 12/17/20 09:12 12/17/20 09:12 General: Alert, In no apparent distress, Oriented x3 Laboratory Data at Discharge: WBC 9.40 K/uL (4.3-10.9) 12/16/20 03:15 Hgb 11.9 g/dL (12.0-15.0) L 12/16/20 03:15 Hct 35.5 % (36.0-45.0) L 12/16/20 03:15 Plt Count 254 K/uL (152-406) 12/16/20 03:15 Sodium 143 mmol/L (136-145) 12/16/20 03:15 Potassium 3.9 mmol/L (3.5-5.1) 12/16/20 03:15 BUN 7 mg/dL (7-18) 12/16/20 03:15 Creatinine 0.82 mg/dL (0.55-1.3) 12/16/20 03:15 Glucose 98 mg/dL (74-106) 12/16/20 03:15 Total Bilirubin 0.3 mg/dL (0.2-1.0) 12/16/20 03:15 AST 7 U/L (15-37) L 12/16/20 03:15 ALT 13 U/L (12-78) 12/16/20 03:15 Alkaline Phosphatase 99 U/L (45-117) 12/16/20 03:15 Troponin I < 0.02 ng/mL (0.0-0.045) 12/16/20 03:15 Lipase 57 U/L (73-393) L 12/15/20 15:26 Home Medications: ALPRAZolam [Xanax*] 1 mg PO TID PRN 12/15/20 Gabapentin [Gralise] 1 tab PO BID 12/15/20 Levothyroxine [Synthroid*] 88 mcg PO [id number] 12/15/20 PHENYTOIN ER Cap [Dilantin ER Cap*] 3 cap PO DAILY 12/15/20 Prazosin HCl 2 cap PO BEDTIME 12/15/20 Risperidone [Risperdal] 1 mg PO DAILY 12/15/20 Sertraline [Zoloft*] 2 tab PO DAILY 12/15/20 Melatonin 10 mg SL PRN PRN 12/16/20 Pantoprazole [Protonix Tab] 40 mg PO DAILY #30 tab 12/17/20 New Medications: Pantoprazole [Protonix Tab] 40 mg PO DAILY #30 tab Physician Discharge Instructions: PROBLEM: Upper GI Bleed, Nausea and vomiting GOAL: Clear understanding of disease process INSTRUCTIONS: Diet: low acid Activity: Fall precautions OK TO DC IV AND DC HOME FOLLOW-UP WITH PRIMARY CARE PROVIDER IN 1-2 WEEKS FOLLOW-UP WITH Gastroenterology IN 1-2 WEEKS RETURN TO THE ER IF symptoms worsen CALL or TEXT DR. HOLDEN AT [phone] IF ANY QUESTIONS REGARDING HOSPITAL STAY. PLEASE CALL THE FLOOR AT [phone] IF ANY MEDICATION OR NURSING QUESTIONS. Diet: low acid Activity: Fall precautions Followup: Bubba Castaneda DO [Primary Care Provider] - Jhonny Vincent MD [ASSOCIATE-ACTIVE - CAN ADMIT] - Time spent managing pt's care (in minutes): 35
[2020-12-17 11:30] LABS: Absolute Lymphocytes (CBC) 1.9 K/uL (0.7-4.9); Hematocrit 35.9 % (36.0-45.0); Lymphocytes % 20.4 % (15.3-44.8); MPV 7.5 fL (7.6-11.3); RBC Red Blood Cell Count 4.03 M/uL (3.86-4.86)
[2020-12-17 11:36] LABS: Potassium 3.6 mmol/L (3.5-5.1)
[2020-12-17] MEDS ORDERED: propofoL 200 MG/20 ML VIAL IV ONE (14:39)
[2020-12-17] MEDS ORDERED: LIDOCAINE 1% MPF 5 ML VIAL ONE (14:39)
--- NOTE | 2020-12-17 15:15 | ENDO RPT ---
[address], [address] EGD PROCEDURE REPORT EXAM DATE: 12/17/2020 PATIENT NAME: Katy Holman MR#: [id number] BIRTHDATE: 1970 ATTENDING: Jhonny Vincent Dr STATUS: inpatient - 7 PRIMARY SPECIAL EDUCATOR: Sharon Hameed RN and Lynette Hawkins RN INDICATIONS: The patient is a 50 yr old Female here for an EGD due to hematemesis, mid epigastric abdominal pain, diarrhea, and anemia PROCEDURE PERFORMED: EGD with biopsy MEDICATIONS: Per Anesthesia. TOPICAL ANESTHETIC: none CONSENT: The patient understands the risks and benefits of the procedure and understands that these risks include, but are not limited to: sedation, allergic reaction, infection, perforation and/or bleeding. Alternative means of evaluation and treatment include, among others: physical exam, x-rays, and/or surgical intervention. The patient elects to proceed with this endoscopic procedure. DESCRIPTION OF PROCEDURE: During intra-op preparation period all mechanical medical equipment was checked for proper function. Hand hygiene and appropriate measures for infection prevention was taken. Procedure, possible complications, and alternatives including but not limited to the possibility of bleeding, perforation, tear, infection, sepsis, need for surgery, need for blood transfusion, and anesthesia related complications were explained to the patient. After the risks, benefits and alternatives of the procedure were thoroughly explained, Informed consent was verified, confirmed and timeout was successfully executed by the treatment team. The patient was placed in the left lateral position. The patient was anesthetized with topical anesthesia. Through the anesthetized oropharyngeal area, the scope was passed without any difficulty. The Pentax EG-[id number] ([id number]) endoscope was introduced through the mouth and advanced to the third portion of the duodenum. Retroflexed views revealed a small hiatal hernia. The gastroscope was then slowly withdrawn and removed. A small hiatal hernia was found Moderate atrophic gastritis was found in the body and the antrum of the stomach. Multiple biopsies were obtained and sent to pathology. Multiple (10) 2-12 mm clean-based ulcers were found in the antrum. Moderate stenosis was found in the antrum. Duodenitis was found in the bulb and descending duodenum. An ulcer was found in the bulb of the duodenum. ADVERSE EVENTS: There were no complications. IMPRESSIONS: 1. Small hiatal hernia 2. Moderate atrophic gastritis in the body and the antrum of the stomach, s/p biopsies 3. Multiple (10) 2-12 mm clean-based ulcers in the antrum 4. Moderate stenosis in the antrum from gastritis and inflammation / edema from multiple ulcers 5. Duodenitis in the bulb and descending duodenum 6. 3 mm shallow clean-based ulcer in the bulb of the duodenum 7. Small bowel biopsies obtained with history of diarrhea RECOMMENDATIONS: 1. await biopsy results 2. acid suppression therapy REPEAT EXAM: Jhonny Vincent Dr eSigned: Jhonny Vincent Dr 12/17/2020 3:15 PM cc: Bubba Castaneda MD CPT CODES: ICD9 CODES: PATIENT NAME: Katy Holman LesliChivo MR#: [id number]
[2020-12-17] MEDS: SERTRALINE HCL 100 MG TAB PO SCH (15:44)
[2020-12-17] MEDS: PHENYTOIN ER 100 MG CAP PO SCH (15:45)
[2020-12-17] MEDS: RISPERIDONE 1 MG TABLET PO SCH (15:46)
[2020-12-17] MEDS ORDERED: ALPRAZOLAM 0.5 MG TABLET PO ONE (18:30)
--- NOTE | 2020-12-17 20:04 | CON ---
Date of Consultation: 12/17/2020 Reason For Consultation: Hematemesis, nausea, vomiting, midepigastric pain. History Of Present Illness: The patient is a 50-year-old white female with history of hypothyroidism , seizure disorder, PTSD, and schizophrenia. The patient came to hospital after having intractable n ausea, vomiting, and saw blood in the emesis, decided to come to hospital. She had been discharged f rom the emergency room earlier in 24 hour period for nausea and vomiting, but this time had hematemes is and decided to be admitted. The patient also reports in addition to the nausea, vomiting, hematem esis, some midepigastric pain for the past 2 days, maximum 5/10, now down to none. She had diarrhea with the onset of this pain and vomiting approximately 2 days ago. The pain is largely resolved as h ave the diarrhea. She notes that she began having headache, which she describes as migraine headache s and she takes Excedrin migraine medicine for her headache, which may have led to her hematemesis, n ausea, vomiting. Also on CT scan in the emergency room, the patient has some mild colitis in the lef t colon noted in addition to her diarrhea on admission, which seems to have resolved since admission. The patient notes that she has had no hematemesis since admission. Pain has disappeared since admi ssion as has diarrhea, although she did state that she had some hematochezia as well, but none since admission as well. It seems like as her migraine headaches have resolved. Past Medical History: Significant for hypothyroidism, obesity, seizure disorder on Dilantin at home, posttraumatic stress disorder, schizophrenia. Medications: At home include Xanax, Gralise, Synthroid, Dilantin, terazosin, Risperdal, Zoloft, alma tonin. Allergies: NKDA. Social History: She is , 2 children. Tobacco, she says she quit in June 2020. Before , she had been smoking for 20 years. No alcohol. Family History: Father had diabetes, hypertension, and kidney disease, and of pancreatic cancer . Mother still alive with diabetes and hypertension. Review of Systems: The patient has midepigastric pain, nausea, vomiting, hematemesis, taking Excedrin migraine medicine for recent uptake in her migraine headache. The patient states she recently switched primary care do ctors from Dr. Duke to Dr. Castaneda. She also notes transient diarrhea without hematochezia. She den ies any hemoptysis, hematuria, dysuria, polyuria, polydipsia. No chest pain or shortness of breath. She has a history of seizures, but no syncope. No lower extremity edema, muscle aches, joint aches, backaches. She does have history of psychiatric disorder including schizophrenia and posttraumatic stress disorder, states to be somewhat anxious currently. Physical Examination: VITAL SIGNS: The patient's temperature 98.3 degrees Fahrenheit, pulse 55, respirations 16, blood pre ssure 122/59, O2 saturation 98%. She is 5 feet 4 inches, 200 pounds, BMI 34 kg/m2. GENERAL: She is an obese female, lying in bed, in no acute distress. HEENT: Normocephalic, atraumatic. Anicteric. Pupils equal, round, and reactive to light. Extraocu lar movements intact. Oropharynx is clear. Neck: Supple. No masses. Respirations: Clear to auscultation bilaterally. Cardiac: Regular rate and rhythm. No gallops heard. Abdomen: Positive bowel sounds. Soft, nontender, nondistended. No hepatosplenomegaly. Obese. Extremities: No clubbing, cyanosis, or edema. 2+ pulses. Neurologic: Alert and oriented x3. Grossly nonfocal. 5/5 motor strength. Sensation intact to ligh t touch. Laboratory Data: The patient has a white count of 9.3, hemoglobin of 12.2 up from 11.9 yesterday, he matocrit 36, MCV of 89, platelet count of 268, polys of 69%, lymphocytes 20%, monocytes 9%, eosinophi ls 1%. The patient has sodium 141, potassium 3.6, chloride 108, bicarb 27, BUN 8, creatinine 0.8, gl ucose 91, calcium 8.3, total bilirubin 0.3, AST of 7, ALT of 13, alkaline phosphatase 99. Troponin I of less than 0.02. Total protein 5.8, albumin 3.0, lipase 57. Serology of the COVID-[address] abdomen and pelvis revealed mild colitis of the left colon. Impression: 1.Hematemesis x2 days with intractable nausea, vomiting, and some mild diarrhea. Of note, the patie nt has not had any hematemesis since admission. She does have a history of Excedrin migraine headach es for migraine headaches, which have been present markedly over the past month. She denies prior EG D or colonoscopy. 2.Midepigastric pain x2 days, maximum 5/10, now down to none. 3.Mild diarrhea, largely resolved currently. 4.Abnormal CT scan with mild colitis noted in the left colon. 5.Some hematochezia noted. She had none since admission. 6.History of headache, possibly migraine headache. The patient on Excedrin migraine medicines as an outpatient, which is possibly related to her upper GI bleed with nausea, vomiting, and pain. 7.History of obesity, hypothyroid, seizure disorder on Dilantin, posttraumatic stress disorder, schi zophrenia. Recommendations: 1.Proceed with EGD urgently. 2.Consider colonoscopy as inpatient or outpatient. 3.Serial H and H, and transfuse p.r.n. 4.PPI therapy. 5.IV fluids and resuscitate. 6.Check stool studies. FRANCY/AYSE Voice ID: [id number] Report ID: [id number]
[2020-12-17] MEDS: PRAZOSIN HCL 1 MG CAP PO SCH (21:03)
[2020-12-17 22:45] VITALS: O2SAT 94
[2020-12-18] MEDS: LEVOTHYROXINE SOD 0.088 MG TAB PO SCH (05:02)
[2020-12-18] MEDS: ACETAMINOPHEN 500 MG TAB PO PRN (05:08)
[2020-12-18] MEDS: NA CHLORIDE 0.9% 1,000 ML IV SCH (08:00)
[2020-12-18 08:08] VITALS: BP 115/56; TEMP 97.5
[2020-12-18] MEDS: SERTRALINE HCL 100 MG TAB PO SCH (08:47)
[2020-12-18] MEDS: RISPERIDONE 1 MG TABLET PO SCH (08:47)
[2020-12-18] MEDS: PANTOPRAZOLE 40 MG INJ IVP SCH (08:47)
[2020-12-18] MEDS: GABAPENTIN 300 MG CAP PO SCH (08:47)
[2020-12-18] MEDS: PHENYTOIN ER 100 MG CAP PO SCH (08:47)
--- NOTE | 2020-12-18 10:46 | P.PN ---
Date of Service: 12/17/20 Subjective Patient had a EGD. It revealed multiple gastric and duodenal ulcers. She has a history of Excedrin migraine use. This most likely caused her upper GI bleeding. She came back up and plan was to let her eat and possible discharge however she had intractable nausea and vomiting after eating. Will give her some anti emetics and reassess her ability to eat later tonight or in the morning. Continue with current plan of care at this time. Review of Systems 10-point ROS is otherwise unremarkable Physical Examination - Vital Signs Reviewed - Physical Exam General: Alert, In no apparent distress, Oriented x3 Respiratory: Clear to auscultation bilaterally, Normal air movement Cardiovascular: Regular rate/rhythm, Normal S1 S2 Gastrointestinal: Normal bowel sounds, No tenderness Neurological: Normal speech, Normal tone, Normal affect Assessment & Plan - Problems (Diagnosis) (1) Upper GI bleeding Current Visit: Yes Status: Acute (2) Hypertension Current Visit: Yes Status: Acute (3) Diabetes type 2, controlled Current Visit: Yes Status: Acute (4) Hypothyroidism Current Visit: Yes Status: Acute (5) Depression Current Visit: Yes Status: Acute - Plan Plan: Continue with plan of care as mentioned below 1. Continue with IV hydration; continue with antiemetics for nausea vomiting. Changed PPI and twice a day; counseling specialist regarding the longer using NSAIDs. Advanced her diet if she tolerates it then anticipate discharge home 2. Clear liquid diet and advance as tolerated 3. Continue with pain control 4. EGD repeat hold multiple gastric and duodenal ulcers. No signs of any active bleeding at this time. Biopsies obtained and outpatient follow-up with GI for biopsy results 5. GI consultation appreciated 6. Serial H&H, and we will monitor LFTs and lipase along with electrolytes. 7. Strict blood pressure and blood sugar control 8. GI and DVT prophylaxis Discharge Plan: Home Plan to discharge in: Greater than 2 days - Advance Directives Does patient have a Living Will: No Does patient have a Durable POA for Healthcare: No - Code Status/Comfort Care Code Status Assessed: Yes Code Status: Full Code Critical Care: No Time Spent Managing PTS Care (In Minutes): 35
== END 2020-12-18 10:53 | disposition home or self-care (01) | DRG 379 ==
LOC: ER 13:59 → ERHOLD 19:07 → 2ND 21:49
PROVIDERS: ADMIT Hospitalist; ATTEND Hospitalist
PROC: 0DB68ZX Excision of Stomach, Via Natural or Artificial Opening Endoscopic, Diagnostic (ICD-10-PCS; principal; 2020-12-17 14:30)
DX: K25.4 Chronic or unspecified gastric ulcer with hemorrhage (principal); K29.41 Chronic atrophic gastritis with bleeding; K26.4 Chronic or unspecified duodenal ulcer with hemorrhage; I10 Essential (primary) hypertension; R19.7 Diarrhea, unspecified; E03.9 Hypothyroidism, unspecified; G43.909 Migraine, unspecified, not intractable, without status migrainosus; F32.9 Major depressive disorder, single episode, unspecified; E11.9 Type 2 diabetes mellitus without complications; K44.9 Diaphragmatic hernia without obstruction or gangrene; Z90.710 Acquired absence of both cervix and uterus; Z79.890 Hormone replacement therapy; Z79.899 Other long term (current) drug therapy; Z20.822 Contact with and (suspected) exposure to COVID-19
CPT/HCPCS: 36415; 74177; 80048; 80053; 80076; 83690; 84484; 85025; 87045; 87046; 88305; 88312; 89055; 96361; 96374; 96375; 99283; 99285; C9113; J0500; J1200; J2405; J2550; J2704; J2930; J7030; J7050; Q9967; U0003

== ENCOUNTER 2021-06-13 13:42 | Emergency (ER) | payer OTHER ==
[2021-06-13] MEDS ORDERED: NA CHLORIDE 0.9% 1,000 ML ONE (17:24)
[2021-06-13] MEDS ORDERED: ONDANSETRON 4 MG/2 ML VIAL ONE (17:24)
[2021-06-13] MEDS ORDERED: LORazepam 2 MG/ML VIAL ONE (17:24)
[2021-06-13 17:36] LABS: Absolute Lymphocytes (CBC) 2.3 K/uL (0.7-4.9); Basophils % 0.8 % (0-1.3); Hematocrit 45.6 % (36.0-45.0); Lymphocytes % 20.8 % (15.3-44.8); MPV 7.5 fL (7.6-11.3)
[2021-06-13 17:57] LABS: ALT/SGPT 14 U/L (12-78); AST/SGOT 9 U/L (15-37); Albumin 3.7 g/dL (3.4-5.0); Alkaline Phosphatase 145 U/L (45-117); BUN Blood Urea Nitrogen 9 mg/dL (7-18); Bicarbonate 23 mmol/L (21-32); Bilirubin Direct < 0.1 mg/dL (0-0.2); Bilirubin Total 0.2 mg/dL (0.2-1.0); Glucose Level 122 mg/dL (74-106); Lipase 65 U/L (73-393); Potassium 3.8 mmol/L (3.5-5.1); Protein, Total 7.8 g/dL (6.4-8.2); Sodium Level 142 mmol/L (136-145)
--- NOTE | 2021-06-13 20:00 | RAD REPORT ---
EXAM DESCRIPTION: CTAbdomen Pelvis W Contrast - 06/13/2021 7:39 pm CLINICAL HISTORY: Abdominal pain. ABD PAIN COMPARISON: C Spine Wo Con dated 02/17/2020Abdomen Pelvis W Contrast dated 12/16/2020 TECHNIQUE: Biphasic CT imaging of the abdomen and pelvis was performed with 100 ml non-ionic IV cont rast. All CT scans are performed using dose optimization technique as appropriate and may include automated exposure control or mA/KV adjustment according to patient size. FINDINGS: The lung bases are clear.Cholecystectomy clips. The liver, spleen, pancreas, adrenal glands and kidneys are within normal limits. No bowel obstruction, free air, free fluid or abscess. Moderate fat containing umbilical hernia. The appendix is normal. No evidence of significant lymphadenopathy. No suspicious bony findings. IMPRESSION: No acute intra-abdominal or pelvic finding. Moderate fat containing umbilical hernia.
--- NOTE | 2021-06-13 20:05 | EDPHYS ---
Physician Documentation [facility] Name: Katy Holman Age: 50 yrs Sex: Female : 1970 Arrival Date: 06/13/2021 Time: 13:47 Bed Treatment Private MD: Bubba Castaneda ED Physician Jose Thomas HPI: 06/13 22:11 This 50 yrs old Female presents to ER via Ambulatory with complaints of Abdominal Pain, kb Vomiting, Headache, Anxiety. 22:11 The patient presents with abdominal pain in the upper abdomen. Onset: The kb symptoms/episode began/occurred this morning. The symptoms do not radiate. Associated signs and symptoms: Pertinent positives: nausea and vomiting, Pertinent negatives: diarrhea, fever. The symptoms are described as achy. Modifying factors: The symptoms are alleviated by nothing, the symptoms are aggravated by nothing. Severity of pain: At its worst the pain was moderate in the emergency department the pain is unchanged. The patient has not experienced similar symptoms in the past. The patient has not recently seen a physician. pt reports n/v and abd pain that started this morning. States she is also anxious because she was unable to hold down her anxiety medication. Called her PCP and was told to come to the ER for imaging. Historical: - Allergies: 14:25 No Known Allergies; ss - PMHx: 14:25 Anxiety; Hypothyroidism; Panic Attacks; PTSD; Seizures; sleep problems; ss - Immunization history:: Client reports receiving the 2nd dose of the Covid vaccine. - Social history:: Smoking status: Patient/guardian denies using tobacco, the patient reports quitting approximately 1 years ago. ROS: 22:10 Constitutional: Negative for fever, chills, and weight loss. kb 22:10 Abdomen/GI: Positive for abdominal pain, nausea and vomiting, Negative for diarrhea. 22:10 Psych: Positive for anxiety. 22:10 All other systems are negative. Exam: 22:10 Head/Face: Normocephalic, atraumatic. ENT: Moist Mucous membranes Cardiovascular: kb Regular rate and rhythm with a normal S1 and S2. No gallops, murmurs, or rubs. No pulse deficits. Respiratory: Respirations even and unlabored. No increased work of breathing, no retractions or nasal flaring. Skin: Warm, dry with normal turgor. Normal color. MS/ Extremity: Pulses equal, no cyanosis. Neurovascular intact. Full, normal range of motion. Neuro: Awake and alert, GCS 15, oriented to person, place, time, and situation. Moves all extremities. Normal gait. Psych: Awake, alert, with orientation to person, place and time. Behavior, mood, and affect are within normal limits. 22:10 Constitutional: The patient appears alert, awake, anxious. 22:10 Abdomen/GI: Inspection: abdomen appears normal, Bowel sounds: normal, Palpation: abdomen is soft and non-tender. Vital Signs: 14:23 Pulse 112; Resp 22; Temp 98.4(TE); Pulse Ox 99% ; Weight 90.72 kg; Height 5 ft. 4 in. ss (162.56 cm); Pain 4/10; 14:25 BP 149 / 86; ss 20:26 BP 115 / 69; Pulse 97; Resp 16 S; Temp 99.4(TE); Pulse Ox 96% on R/A; bb 14:23 Body Mass Index 34.33 (90.72 kg, 162.56 cm) ss MDM: 15:57 Patient medically screened. kb 20:04 Data reviewed: vital signs, nurses notes. Data interpreted: Pulse oximetry: on room air kb is 99 %. Interpretation: normal. Counseling: I had a detailed discussion with the patient and/or guardian regarding: the historical points, exam findings, and any diagnostic results supporting the discharge/admit diagnosis, lab results, radiology results, the need for outpatient follow up, a family practitioner, to return to the emergency department if symptoms worsen or persist or if there are any questions or concerns that arise at home. 06/13 16:05 Order name: Basic Metabolic Panel; Complete Time: 18:00 kb 06/13 16:05 Order name: CBC with Diff; Complete Time: 17:40 kb 06/13 16:05 Order name: Hepatic Function; Complete Time: 18:00 kb 06/13 16:05 Order name: Lipase; Complete Time: 18:00 kb 06/13 17:47 Order name: CT Abd/Pelvis - IV Contrast Only; Complete Time: 20:03 kb 06/13 16:05 Order name: IV Saline Lock; Complete Time: 17:22 kb 06/13 16:05 Order name: Labs collected and sent; Complete Time: 17:22 kb Administered Medications: 17:34 Drug: NS 0.9% 1000 ml Route: IV; Rate: 1000 ml; Site: left antecubital; iw 19:00 Follow up: IV Status: Completed infusion; IV Intake: 1000ml bb 17:34 Drug: Zofran (Ondansetron) 4 mg Route: IVP; Site: left antecubital; iw 20:27 Follow up: Response: No adverse reaction bb 17:34 Drug: Ativan (LORazepam) 0.5 mg Route: IVP; Site: left antecubital; iw 20:27 Follow up: Response: No adverse reaction bb Disposition: 06/14 08:47 Co-signature as Attending Physician, Jose Thomas MD I agree with the assessment and damir plan of care. Chart complete. Disposition Summary: 06/13/21 20:04 Discharge Ordered Location: Home kb Condition: Stable kb Diagnosis - Nausea with vomiting, unspecified kb - Anxiety disorder, unspecified kb - Umbilical hernia without obstruction or gangrene kb Followup: kb - With: Emergency Department - When: As needed - Reason: Worsening of condition Followup: kb - With: Private Physician - When: 2 - 3 days - Reason: Recheck today's complaints, Continuance of care, Re-evaluation by your physician Discharge Instructions: - Discharge Summary Sheet kb - Abdominal Pain, Adult, [id number] kb - Umbilical Hernia, Adult kb Forms: - Medication Reconciliation Form kb - Thank You Letter kb - Antibiotic Education kb - Prescription Opioid Use kb Prescriptions: - Zofran 4 mg Oral Tablet - take 1 tablet by ORAL route every 6 hours As needed; 20 tablet; Refills: 0, kb Product Selection Permitted - dicyclomine 20 mg Oral Tablet - take 1 tablet by ORAL route 4 times per day As needed; 20 tablet; Refills: 0, kb Product Selection Permitted Signatures: Dispatcher [employer] Stephanie Cam, Jose Keller MD MD cha Williams, Irene, RN Gricel Ramirez RN RN Gale Giron RN bb
--- NOTE | 2021-06-13 20:05 | ER ---
Nurse's Notes [facility] Name: Katy Holman Age: 50 yrs Sex: Female : 1970 Arrival Date: 06/13/2021 Time: 13:47 Bed Treatment Private MD: Bubba Castaneda Diagnosis: Nausea with vomiting, unspecified;Anxiety disorder, unspecified;Umbilical hernia without obstruction or gangrene Presentation: 06/13 14:23 Chief complaint: Patient states: N/V that began this morning. Pt states that she has ss not been able to keep her anxiety medication down and now she is very anxious. Pt states earlier this year she was here for ulcers and "stomach issues" Pt states, "I called my doctor and he told me to come to the ER to have some imaging done.". Coronavirus screen: Client denies travel out of the [place] in the last 14 days. Ebola Screen: Patient denies exposure to infectious person. Patient denies travel to an Ebola-affected area in the 21 days before illness onset. Initial Sepsis Screen: Does the patient meet any 2 criteria? No. Patient's initial sepsis screen is negative. Does the patient have a suspected source of infection? No. Patient's initial sepsis screen is negative. Risk Assessment: Do you want to hurt yourself or someone else? Patient reports no desire to harm self or others. Onset of symptoms was June 13, 2021. 14:23 Method Of Arrival: Ambulatory ss 14:23 Acuity: HOWARD 3 ss Historical: - Allergies: 14:25 No Known Allergies; ss - PMHx: 14:25 Anxiety; Hypothyroidism; Panic Attacks; PTSD; Seizures; sleep problems; ss - Immunization history:: Client reports receiving the 2nd dose of the Covid vaccine. - Social history:: Smoking status: Patient/guardian denies using tobacco, the patient reports quitting approximately 1 years ago. Screenin:12 Abuse screen: Denies threats or abuse. Denies injuries from another. Nutritional iw screening: No deficits noted. Tuberculosis screening: No symptoms or risk factors identified. Fall Risk IV access (20 points). Assessment: 17:45 General: Appears in no apparent distress. comfortable, Behavior is calm, cooperative. iw Pain: Complains of pain in abdomen. Neuro: Level of Consciousness is awake, alert, obeys commands, Oriented to person, place, time, situation, Moves all extremities. Full function. GI: Abdomen is flat, Bowel sounds present X 4 quads. Abd is soft and non tender X 4 quads. Reports upper abdominal pain. 19:00 Reassessment: Patient appears in no apparent distress at this time. Patient and/or iw family updated on plan of care and expected duration. Pain level reassessed. Patient is alert, oriented x 3, equal unlabored respirations, skin warm/dry/pink. Patient states feeling better. 20:25 Reassessment: Patient is alert, oriented x 3, equal unlabored respirations, skin bb warm/dry/pink. pt verbalized understanding of and agrees to plan of care discharge instructions given pt ambulated with steady gait to exit accompanied by family. Vital Signs: 14:23 Pulse 112; Resp 22; Temp 98.4(TE); Pulse Ox 99% ; Weight 90.72 kg; Height 5 ft. 4 in. ss (162.56 cm); Pain 4/10; 14:25 BP 149 / 86; ss 20:26 BP 115 / 69; Pulse 97; Resp 16 S; Temp 99.4(TE); Pulse Ox 96% on R/A; bb 14:23 Body Mass Index 34.33 (90.72 kg, 162.56 cm) ss ED Course: 13:47 Patient arrived in ED. mr 13:47 Bubba Castaneda DO is Private Physician. mr 14:25 Triage completed. ss 14:25 Arm band placed on left wrist. ss 15:56 Olivia Mac, RN is Primary Nurse. iw 15:56 Stephanie Weaver FNP-C [facility]. kb 15:56 Jose Thomas MD is Attending Physician. kb 18:00 Inserted saline lock: 22 gauge in left antecubital area, using aseptic technique. Blood iw collected. 19:38 CT Abd/Pelvis - IV Contrast Only In Process Unspecified. EDMS 20:26 No provider procedures requiring assistance completed. IV discontinued, intact, bb bleeding controlled, No redness/swelling at site. Pressure dressing applied. Administered Medications: 17:34 Drug: NS 0.9% 1000 ml Route: IV; Rate: 1000 ml; Site: left antecubital; iw 19:00 Follow up: IV Status: Completed infusion; IV Intake: 1000ml bb 17:34 Drug: Zofran (Ondansetron) 4 mg Route: IVP; Site: left antecubital; iw 20:27 Follow up: Response: No adverse reaction bb 17:34 Drug: Ativan (LORazepam) 0.5 mg Route: IVP; Site: left antecubital; iw 20:27 Follow up: Response: No adverse reaction bb Intake: 19:00 IV: 1000ml; Total: 1000ml. bb Outcome: 20:04 Discharge ordered by MD. peters 20:27 Discharged to home ambulatory, with family. bb 20:27 Condition: stable 20:27 Discharge instructions given to patient, Instructed on discharge instructions, follow up and referral plans. medication usage, Demonstrated understanding of instructions, follow-up care, medications, Prescriptions given X 2. 20:28 Patient left the ED. bb Signatures: Dispatcher [employer] EDMS Stephanie Weaver, ELLA PRICING STRATEGIST-Maryanne Jay mr GironGale, RN RN Olivia Arnold, Gricel Ramirez RN, RN RN ss Corrections: (The following items were deleted from the chart) 14:26 14:23 Pulse 112bpm; Resp 16bpm; Pulse Ox 99%; Temp 98.4F Temporal; 90.72 kg; Height 5 ss ft. 4 in.; BMI: 34.3; Pain 4/10; ss 19:21 19:00 Reassessment: Patient appears in no apparent distress at this time. Patient iw and/or family updated on plan of care and expected duration. Pain level reassessed. Patient is alert, oriented x 3, equal unlabored respirations, skin warm/dry/pink. Patient states feeling better. iw
[2021-06-13 21:05] VITALS: BP 115/69; TEMP 99.4; O2SAT 96
== END 2021-06-13 20:28 | disposition home or self-care (01) ==
LOC: ER 13:42
DX: R11.2 Nausea with vomiting, unspecified (principal); F41.9 Anxiety disorder, unspecified; K42.9 Umbilical hernia without obstruction or gangrene
CPT/HCPCS: 96361; 85025; 80048; 36415; 80076; 83690; 74177; 96375; 96374; 99284; Q9967; J7030; J2405

== ENCOUNTER 2021-11-20 01:30 | Emergency (ER) | payer OTHER ==
[2021-11-20 02:33] LABS: Urine Blood Negative (Negative); Urine Glucose Negative (Negative); Urine Protein Negative (Negative); Urine Specific Gravity <=1.005 (1.005-1.030); Urine pH 5.5 (5.0-7.0)
[2021-11-20 02:34] LABS: Absolute Lymphocytes (CBC) 2.1 K/uL (0.7-4.9); Lymphocytes % 26.2 % (15.3-44.8); MPV 8.2 fL (7.6-11.3); RBC Red Blood Cell Count 4.41 M/uL (3.86-4.86)
[2021-11-20 02:39] LABS: Protime INR 1.04
[2021-11-20] MEDS ORDERED: NA CHLORIDE 0.9% 1,000 ML ONE (02:47)
[2021-11-20] MEDS ORDERED: LORazepam 2 MG/ML VIAL ONE (02:47)
[2021-11-20 02:50] LABS: Barbiturates NEGATIVE (NEGATIVE); Benzodiazepines POSITIVE (NEGATIVE); Cocaine NEGATIVE (NEGATIVE); METHAMPHETAM NEGATIVE (NEGATIVE); Methadone NEGATIVE (NEGATIVE); Opiates NEGATIVE (NEGATIVE); Phencyclidine NEGATIVE (NEGATIVE); THC Cannibis POSITIVE (NEGATIVE)
[2021-11-20 03:00] LABS: AST/SGOT 5 U/L (15-37); Albumin 3.4 g/dL (3.4-5.0); Alkaline Phosphatase 85 U/L (45-117); BUN Blood Urea Nitrogen 9 mg/dL (7-18); Bicarbonate 24 mmol/L (21-32); Bilirubin Total 0.2 mg/dL (0.2-1.0); Glucose Level 113 mg/dL (74-106); Protein, Total 6.4 g/dL (6.4-8.2); Sodium Level 139 mmol/L (136-145)
[2021-11-20 03:01] LABS: ALT/SGPT < 10 U/L (12-78); Bilirubin Direct < 0.1 mg/dL (0-0.2)
[2021-11-20] MEDS ORDERED: FOSPHENYTOIN PE 500 MG/10 ML VIAL ONE (03:17)
[2021-11-20] MEDS ORDERED: POTASSIUM 25 MEQ EFFERV TAB ONE (03:17)
[2021-11-20] MEDS ORDERED: NA CHLORIDE 0.9% 100 ML IV ONE (03:19)
--- NOTE | 2021-11-20 03:45 | EDPHYS ---
Physician Documentation [facility] Name: Katy River Age: 50 yrs Sex: Female : 1970 Arrival Date: 11/20/2021 Time: 01:37 Bed 13 Private MD: ARABELLA Physician Brown Notron HPI: 11/20 02:00 This 50 yrs old Female presents to ER via Wheelchair with complaints of Probable mh7 Seizure. 02:00 The patient presents after having a single isolated seizure, that lasted 1 minute(s), mh7 after having a possible seizure episode, no tonic-clonic activity was appreciated, blank stare was witnessed. Character of seizure(s): Loss of consciousness: the patient experienced loss of consciousness, brief, Motor activity: blank stare, Incontinence: none, Apnea: the patient did not experience apnea, Circulation: the patient did not experience evidence of pulse disturbance, Eye movements: are unknown. Seizure onset: today. Context: the seizure(s) was witnessed, by a bystander, by family, , occurred In ER waiting room, occurred while the patient was sitting, Contributing factors: missed recent doses of medications. Seizure Hx: Original onset: longstanding. Associated injury: The patient did not suffer any apparent associated injury. States that she came to the ER because she was having anxiety and ran out of her Alprazolam yesterday morning. While in the waiting room states that she had a seizure that was characterized as staring.. 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 - Social history:: Smoking status: Patient reports the use of cigarette tobacco products. ROS: 02:00 Constitutional: Negative for fever, chills, and weight loss, Eyes: Negative for injury, mh7 pain, redness, and discharge, ENT: Negative for injury, pain, and discharge, Neck: Negative for injury, pain, and swelling, Cardiovascular: Negative for chest pain, palpitations, and edema, Respiratory: Negative for shortness of breath, cough, wheezing, and pleuritic chest pain, Abdomen/GI: Negative for abdominal pain, nausea, vomiting, diarrhea, and constipation, Back: Negative for injury and pain, : Negative for injury, bleeding, discharge, and swelling, MS/Extremity: Negative for injury and deformity, Skin: Negative for injury, rash, and discoloration, Allergy/Immunology: Negative for hives, rash, and allergies, Endocrine: Negative for neck swelling, polydipsia, polyuria, polyphagia, and marked weight changes, Hematologic/Lymphatic: Negative for swollen nodes, abnormal bleeding, and unusual bruising. Exam: 02:00 Head/Face: Normocephalic, atraumatic. Eyes: Pupils equal round and reactive to light, mh7 extra-ocular motions intact. Lids and lashes normal. Conjunctiva and sclera are non-icteric and not injected. Cornea within normal limits. Periorbital areas with no swelling, redness, or edema. Neck: Trachea midline, no thyromegaly or masses palpated, and no cervical lymphadenopathy. Supple, full range of motion without nuchal rigidity, or vertebral point tenderness. No Meningismus. Chest/axilla: Normal chest wall appearance and motion. Nontender with no deformity. No lesions are appreciated. 02:00 Cardiovascular: Regular rate and rhythm with a normal S1 and S2. No gallops, murmurs, or rubs. Normal PMI, no JVD. No pulse deficits. Respiratory: Lungs have equal breath sounds bilaterally, clear to auscultation and percussion. No rales, rhonchi or wheezes noted. No increased work of breathing, no retractions or nasal flaring. Abdomen/GI: Soft, non-tender, with normal bowel sounds. No distension or tympany. No guarding or rebound. No evidence of tenderness throughout. Back: No spinal tenderness. No costovertebral tenderness. Full range of motion. Skin: Warm, dry with normal turgor. Normal color with no rashes, no lesions, and no evidence of cellulitis. MS/ Extremity: Pulses equal, no cyanosis. Neurovascular intact. Full, normal range of motion. Neuro: Awake and alert, GCS 15, oriented to person, place, time, and situation. Cranial nerves II-XII grossly intact. Motor strength 5/5 in all extremities. Sensory grossly intact. Cerebellar exam normal. Normal gait. Psych: Awake, alert, with orientation to person, place and time. Behavior, mood, and affect are within normal limits. 02:00 Constitutional: The patient appears in no acute distress, alert, awake, anxious. Vital Signs: 01:47 BP 129 / 100; Pulse 83; Resp 19; Temp 98.8(O); Pulse Ox 98% on R/A; Weight 73.94 kg; sm5 Height 5 ft. 4 in. (162.56 cm); Pain 3/10; 02:52 BP 120 / 82; Pulse 72; Resp 19; Pulse Ox 97% on R/A; sm5 04:06 BP 135 / 108; Pulse 78; Resp 19; Pulse Ox 100% on R/A; sm5 01:47 Body Mass Index 27.98 (73.94 kg, 162.56 cm) sm5 [place] Coma Score: 01:52 Eye Response: spontaneous(4). Verbal Response: oriented(5). Motor Response: obeys sm5 commands(6). Total: 15. MDM: 03:42 Differential diagnosis: drug overdose, seizure, substance abuse. Data reviewed: [facility] signs, nurses notes, old medical records, lab test result(s), CBC, drug level(s), acetaminophen, alcohol, dilantin, salicylate, electrolytes, urinalysis, urine drug screen, UPT: negative EKG. Data interpreted: Pulse oximetry: on room air is 97 %. Interpretation: normal. Counseling: I had a detailed discussion with the patient and/or guardian regarding: the historical points, exam findings, and any diagnostic results supporting the discharge/admit diagnosis, lab results, the need for outpatient follow up, a neurologist, a psychiatrist, to return to the emergency department if symptoms worsen or persist or if there are any questions or concerns that arise at home. Response to treatment: the patient's symptoms have resolved after treatment, the patient's blood pressure is in an acceptable range, mental status has returned to baseline, the patient no longer shows bradycardia, the patient is not short of breath, the patient is not tachycardic, the patient's pain is gone, the patient's temperature has normalized. 03:44 Patient medically screened. [facility] 11/20 02:08 Order name: Acetaminophen; Complete Time: 03:05 [facility] 11/20 02:08 Order name: Basic Metabolic Panel; Complete Time: 03:05 [facility] 11/20 02:08 Order name: CBC with Diff; Complete Time: 02:40 7 11/20 02:08 Order name: ETOH Level; Complete Time: 03:05 [facility] 11/20 02:08 Order name: Hepatic Function; Complete Time: 03:05 [facility] 11/20 02:08 Order name: PT-INR; Complete Time: 03:05 [facility] 11/20 02:08 Order name: Ptt, Activated; Complete Time: 03:05 [facility] 11/20 02:08 Order name: Salicylate; Complete Time: 03:05 [facility] 11/20 02:08 Order name: Urine Drug Screen; Complete Time: 03:05 [facility] 11/20 02:24 Order name: Phenytoin (dilantin); Complete Time: 03:05 [facility] 11/20 02:33 Order name: Urine Dipstick-Ancillary; Complete Time: 02:40 [facility] 11/20 02:34 Order name: Test, Serum; Complete Time: 03:05 [facility] 11/20 03:06 Order name: Magnesium; Complete Time: 03:32 [facility] 11/20 02:08 Order name: EKG; Complete Time: 02:10 [facility] 11/20 02:08 Order name: EKG - Nurse/Tech; Complete Time: 02:34 [facility] 11/20 02:08 Order name: IV Saline Lock; Complete Time: 02:34 [facility] 11/20 02:08 Order name: Labs collected and sent; Complete Time: 02:34 [facility] 11/20 02:08 Order name: Suicide Screening ([place]); Complete Time: 02:34 [facility] 11/20 02:08 Order name: Urine Dipstick-Ancillary (obtain specimen); Complete Time: 02:34 [facility] Administered Medications: 02:40 Drug: NS 0.9% 1000 ml Route: IV; Rate: 1000 ml; Site: left antecubital; sm5 02:40 Drug: Ativan (LORazepam) 1 mg Route: IVP; Site: left antecubital; 5 03:26 Drug: Potassium Effervescent Tablet 50 mEq Route: PO; sm5 03:26 Drug: Fosphenytoin 10 mg/kg/h Route: IVPB; Infused Over: 15 mins; Site: left sm5 antecubital; 03:59 Drug: Benadryl (diphenhydrAMINE) 25 mg Route: IVP; Site: left antecubital; 5 Disposition Summary: 11/20/21 03:44 Discharge Ordered Location: Home [facility] Problem: an acute exacerbation mh7 Symptoms: have improved mh7 Condition: Stable 7 Diagnosis - Anxiety disorder, unspecified mh7 - Other seizures - Subtherapeutic Dilantin Level(11/20/21 03:46) 7 - Hypokalemia 7 Followup: 7 - With: Private Physician - When: 1 - 2 days - Reason: Worsening of condition, Recheck today's complaints, Continuance of care, Re-evaluation by your physician Followup: 7 - With: Torsten Larson MD - When: 1 - 2 days - Reason: Worsening of condition, Recheck today's complaints Followup: 7 - With: Prakash Castaneda MD - When: 1 - 2 days - Reason: Worsening of condition, Recheck today's complaints, Continuance of care, Re-evaluation by your physician Discharge Instructions: - Discharge Summary Sheet mh7 - Seizure, Adult, [id number] mh7 - Generalized Anxiety Disorder, Adult [facility] Forms: - Medication Reconciliation Form 7 - Thank You Letter 7 - Antibiotic Education 7 - Prescription Opioid Use [facility] Signatures: Dispatcher [employer] Brown Moreno MD MD 7 Myrna Joy RN RN 5 Corrections: (The following items were deleted from the chart) 02:28 02:24 This 50 yrs old Female presents to ER via Wheelchair with complaints of Probable mh7 Seizure. mh7 02:34 02:08 Urine Test ordered. 7 mw2 03:46 03:44 Other seizures 7 7
--- NOTE | 2021-11-20 03:45 | ER ---
Nurse's Notes [facility] Name: Katy Holman Age: 50 yrs Sex: Female : 1970 Arrival Date: 11/20/2021 Time: 01:37 Bed 13 Private MD: Diagnosis: Other seizures-Subtherapeutic Dilantin Level;Anxiety disorder, unspecified;Hypokalemia Presentation: 11/20 01:47 Chief complaint: Patient states: she came in because she is out of her alprazolam and [facility] needs more. registration called for a nurse out to lobby for this pt having a seizure. states pt froze and tensed up and then started shaking. seizure not witnessed by this RN. pt able to make eye contact and talk to this RN right after. Coronavirus screen: At this time, the client does not indicate any symptoms associated with coronavirus-19. Ebola Screen: No symptoms or risks identified at this time. Initial Sepsis Screen: Does the patient meet any 2 criteria? No. Patient's initial sepsis screen is negative. Does the patient have a suspected source of infection? No. Patient's initial sepsis screen is negative. Risk Assessment: Do you want to hurt yourself or someone else? Patient reports no desire to harm self or others. Onset of symptoms was November 20, 2021. 01:47 Method Of Arrival: Wheelchair [facility] 01:47 Acuity: HOWARD 3 5 Triage Assessment: 01:52 General: Appears in no apparent distress. Behavior is cooperative. Pain: Complains of 5 pain in head. Neuro: No deficits noted. Barreto Agitation-Sedation Scale (RASS): 0 - Alert and Calm Level of Consciousness is awake, alert, obeys commands, Oriented to person, place, time, situation. Cardiovascular: No deficits noted. Capillary refill < 3 seconds Patient's skin is warm and dry. Respiratory: No deficits noted. Airway is patent Trachea midline Respiratory effort is even, unlabored. GI: Reports nausea, vomiting. 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 - Social history:: Smoking status: Patient reports the use of cigarette tobacco products. Screenin:54 Abuse screen: Denies threats or abuse. Denies injuries from another. Nutritional sm5 screening: No deficits noted. Tuberculosis screening: No symptoms or risk factors identified. Fall Risk None identified. Assessment: 02:00 Reassessment: see triage assessment. sm5 03:00 Reassessment: No changes from previously documented assessment. Patient and/or family sm5 updated on plan of care and expected duration. Pain level reassessed. 03:55 Reassessment: pt stating she is itchy on her abd and buttocks. Dr. Norton made aware. sm5 benadryl ordered and given. Vital Signs: 01:47 BP 129 / 100; Pulse 83; Resp 19; Temp 98.8(O); Pulse Ox 98% on R/A; Weight 73.94 kg; sm5 Height 5 ft. 4 in. (162.56 cm); Pain 3/10; 02:52 BP 120 / 82; Pulse 72; Resp 19; Pulse Ox 97% on R/A; sm5 04:06 BP 135 / 108; Pulse 78; Resp 19; Pulse Ox 100% on R/A; sm5 01:47 Body Mass Index 27.98 (73.94 kg, 162.56 cm) sm5 [place] Coma Score: 01:52 Eye Response: spontaneous(4). Verbal Response: oriented(5). Motor Response: obeys sm5 commands(6). Total: 15. ED Course: 01:37 Patient arrived in ED. la1 01:41 Brown Norton MD is Attending Physician. mh7 01:47 Myrna Joy RN is Primary Nurse. sm5 01:49 Triage completed. sm5 01:50 Arm band placed on right wrist. sm5 01:54 Bed in low position. Call light in reach. Side rails up X2. Seizure precautions sm5 initiated. 02:20 Inserted saline lock: 20 gauge in left antecubital area, using aseptic technique. Blood sm5 collected. 02:34 Urine Drug Screen Sent. sm5 02:34 Salicylate Sent. sm5 02:34 Ptt, Activated Sent. sm5 02:34 PT-INR Sent. sm5 02:34 Hepatic Function Sent. sm5 02:34 ETOH Level Sent. sm5 02:35 Basic Metabolic Panel Sent. sm5 02:35 Acetaminophen Sent. sm5 02:35 Test, Serum Sent. sm5 02:35 Phenytoin (dilantin) Sent. 5 03:44 Torsten Larson MD is Referral Physician. 7 03:44 Prakash Castaneda MD is Referral Physician. [facility] 04:06 No provider procedures requiring assistance completed. IV discontinued, intact, 5 bleeding controlled, No redness/swelling at site. Pressure dressing applied. Administered Medications: 02:40 Drug: NS 0.9% 1000 ml Route: IV; Rate: 1000 ml; Site: left antecubital; 5 02:40 Drug: Ativan (LORazepam) 1 mg Route: IVP; Site: left antecubital; [facility] 03:26 Drug: Potassium Effervescent Tablet 50 mEq Route: PO; 5 03:26 Drug: Fosphenytoin 10 mg/kg/h Route: IVPB; Infused Over: 15 mins; Site: left 5 antecubital; 03:59 Drug: Benadryl (diphenhydrAMINE) 25 mg Route: IVP; Site: left antecubital; [facility] Outcome: 03:44 Discharge ordered by . [facility] 04:06 Discharged to home ambulatory, with family. [facility] 04:06 Condition: stable 04:06 Discharge instructions given to patient, family, Instructed on discharge instructions, follow up and referral plans. Demonstrated understanding of instructions, follow-up care. 04:07 Patient left the ED. [facility] Signatures: Jack Vu, SPOOL SANDER-C SPOOL SANDER-Cla1 Brown Norton MD MD [facility] Myrna Joy, RN RN [facility]
[2021-11-20] MEDS ORDERED: DIPHENHYDRAMINE 50 MG/ML VIAL ONE (04:02)
[2021-11-20 05:36] VITALS: TEMP 98.8
[2021-11-20 05:39] VITALS: BP 135/108; O2SAT 100
--- NOTE | 2021-11-21 08:59 | EKG ---
Test Date: 2021-11-20 Test Time: 02:17:22 Welt Cutter: [place] MEASUREMENT RESULTS: Intervals: Rate: 68 UT: 178 QRSD: 90 QT: 390 QTc: 414 [place]: P: 34 UT: 178 QRS: 2 T: -10 INTERPRETIVE STATEMENTS: Normal sinus rhythm Nonspecific T wave abnormality Abnormal ECG Compared to ECG 01/07/2015 18:26:02 No significant changes Electronically Signed On 11-21-21 08:56:48 CDT by Soy Chauhan
== END 2021-11-20 04:07 | disposition home or self-care (01) ==
LOC: ER 01:30
DX: G40.89 Other seizures (principal); F41.9 Anxiety disorder, unspecified; E87.6 Hypokalemia; R89.2 Abnormal level of other drugs, medicaments and biological substances in specimens from other organs, systems and tissues; E03.9 Hypothyroidism, unspecified; Z72.0 Tobacco use
CPT/HCPCS: 93005; 85025; 80048; 36415; 80320; 83735; 80329 ×2; 84703; 85610; 80076; 85730; 80185; 81003; 80307; 96375; 96374; 99283; J1200; Q2009; J7030

== ENCOUNTER 2022-01-14 23:43 | Emergency (ER) | payer OTHER ==
[2022-01-15 01:42] LABS: Absolute Lymphocytes (CBC) 1.8 K/uL (0.7-4.9); Hematocrit 41.6 % (36.0-45.0); Lymphocytes % 30.6 % (15.3-44.8); MPV 7.7 fL (7.6-11.3); RBC Red Blood Cell Count 4.72 M/uL (3.86-4.86)
[2022-01-15] MEDS ORDERED: PANTOPRAZOLE 40 MG INJ ONE (01:43)
[2022-01-15] MEDS ORDERED: NA CHLORIDE 0.9% 1,000 ML ONE (01:43)
[2022-01-15] MEDS ORDERED: ONDANSETRON 4 MG/2 ML VIAL ONE (01:43)
[2022-01-15 01:52] LABS: Protime INR 1.09
[2022-01-15 02:03] LABS: ALT/SGPT 11 U/L (12-78); AST/SGOT 7 U/L (15-37); Albumin 3.8 g/dL (3.4-5.0); Alkaline Phosphatase 82 U/L (45-117); BUN Blood Urea Nitrogen 7 mg/dL (7-18); Bicarbonate 24 mmol/L (21-32); Bilirubin Total 0.3 mg/dL (0.2-1.0); Glomerular Filtration Rate 90 ml/min (=/>90); Glucose Level 108 mg/dL (74-106); Lipase 62 U/L (73-393); Magnesium 2.1 mg/dL (1.8-2.4); NT PRO-BNP 38 pg/mL (<125); Sodium Level 135 mmol/L (136-145); Troponin High Sensitivity 3.5 pg/mL (<58.9)
[2022-01-15 02:18] LABS: Bilirubin Direct < 0.1 mg/dL (0-0.2)
[2022-01-15] MEDS ORDERED: LORazepam 2 MG/ML VIAL ONE ×2 (02:28→05:20)
[2022-01-15] MEDS ORDERED: NA CHLORIDE 0.9% 100 ML ONE (03:07)
[2022-01-15] MEDS ORDERED: KCL 20 MEQ/100 mL IVPB 100 ML IV ONE (03:07)
[2022-01-15] MEDS ORDERED: MORPHINE 4 MG/ML SYR ONE (03:37)
--- NOTE | 2022-01-15 03:50 | RAD REPORT ---
EXAM DESCRIPTION: CTAbdomen Pelvis W Contrast - 01/15/2022 3:30 am CLINICAL HISTORY: Abdominal pain, acute, nonlocalized COMPARISON: Abdomen Pelvis W Contrast dated 01/02/2022; Abdomen Pelvis W Contrast dated ; Abdomen Pelvis W Contrast dated 12/16/2020 TECHNIQUE: CT of the abdomen and pelvis was performed with contrast. All CT scans are performed using dose optimization technique as appropriate and may include automated exposure control or mA/KV adjustment according to patient size. FINDINGS: Lower chest: Mild circumferential thickened distal esophagus. Liver: No acute abnormality or suspicious lesions. Biliary: Cholecystectomy Stomach: No significant focal abnormality. Duodenum: No significant focal abnormality. Pancreas: No significant abnormality. Spleen: No significant abnormality. Adrenal: No suspicious lesions. Kidney/ureter: No hydronephrosis. No renal calculi. Too small to characterize and/or benign appearing renal lesions are noted. Retroperitoneum: No retroperitoneal adenopathy. Vascular: No aneurysm. Bowel: Mild distal sigmoid and rectal wall thickening and hyperenhancement. The anus is thickened and hyperenhancing as well. Appendectomy. Increased stool burden. Peritoneum: No ascites or free air. Small fat containing periumbilical hernia. Bladder: Grossly unremarkable. Reproductive: No adnexal masses. Bones: No acute fracture. Other: n/a IMPRESSION: Mild new distal sigmoid and rectal wall thickening/hyperenhancement consistent with a pr octocolitis. No bowel obstruction.
--- NOTE | 2022-01-15 05:07 | ER ---
Nurse's Notes [facility] [place] Name: Katy Holman Age: 51 yrs Sex: Female : 1970 Arrival Date: 01/14/2022 Time: 23:43 Bed 3 Private MD: Bubba Castaneda Diagnosis: Abdominal pain, Generalized;Left sided colitis with rectal bleeding-Proctocolitis;Diarrhea, unspecified;Vomiting;Hypokalemia Presentation: 01/15 00:46 Chief complaint: Patient states: "I was recently discharged from the hospital with tw5 ulcertive colitis. I feel like i have ulcers in my stomach. I having more bleeding and I feel a burning sensation on my anus. I have been having diarrhea and vomiting I cannot even keep popsicles or Jello down. Coronavirus screen: Vaccine status: Patient reports receiving the 2nd dose of the covid vaccine. [employer]. Ebola Screen: Patient negative for fever greater than or equal to 101.5 degrees Fahrenheit, and additional compatible Ebola Virus Disease symptoms Patient denies exposure to infectious person. Patient denies travel to an Ebola-affected area in the 21 days before illness onset. Initial Sepsis Screen: Does the patient meet any 2 criteria? No. Patient's initial sepsis screen is negative. Does the patient have a suspected source of infection? Yes: Acute abdominal pain. Risk Assessment: Do you want to hurt yourself or someone else? Patient reports no desire to harm self or others. Onset of symptoms was January 02, 2022. 00:46 Method Of Arrival: Ambulatory tw5 00:46 Acuity: HOWARD 3 tw5 Triage Assessment: 00:49 General: Appears uncomfortable, Behavior is cooperative, appropriate for age, anxious. tw5 Pain: Complains of pain in gluteal cleft and abdomen Pain currently is 6 out of 10 on a pain scale. GI: Reports diarrhea, nausea, vomiting. 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 - Social history:: Smoking status: Patient reports the use of cigarette tobacco products, smokes one-half pack cigarettes per day. Screenin:09 Abuse screen: Denies threats or abuse. Denies injuries from another. Nutritional sm5 screening: No deficits noted. Tuberculosis screening: No symptoms or risk factors identified. Fall Risk None identified. Assessment: 01:00 General: Appears in no apparent distress. Behavior is anxious. Pain: Complains of pain sm5 in abdomen and buttocks. Neuro: Level of Consciousness is awake, alert, obeys commands, Oriented to person, place, time, situation. Cardiovascular: Capillary refill < 3 seconds Patient's skin is warm and dry. Respiratory: Airway is patent Trachea midline Respiratory effort is even, unlabored. GI: Bowel sounds present X 4 quads. Abd is soft Reports upper abdominal pain, nausea, "burning in her butt". 02:00 Reassessment: No changes from previously documented assessment. Patient and/or family sm5 updated on plan of care and expected duration. Pain level reassessed. 03:00 Reassessment: No changes from previously documented assessment. sm5 05:09 Reassessment: No changes from previously documented assessment. Patient is alert, sm5 oriented x 3, equal unlabored respirations, skin warm/dry/pink. Vital Signs: 00:46 BP 129 / 81; Pulse 92; Resp 18; Temp 99.5(O); Pulse Ox 100% on R/A; Weight 70.76 kg; tw5 Height 5 ft. 4 in. (162.56 cm); Pain 6/10; 02:15 BP 132 / 75; Pulse 68; Resp 23; Pulse Ox 99% on R/A; sm5 03:45 BP 106 / 78; Pulse 67; Resp 10; Pulse Ox 94% on R/A; sm5 05:00 BP 110 / 68; Pulse 76; Resp 18; Pulse Ox 95% on R/A; sm5 00:46 Body Mass Index 26.78 (70.76 kg, 162.56 cm) tw5 ED Course: 01/14 23:43 Patient arrived in ED. am2 23:44 Bubba Castaneda DO is Private Physician. am2 0703 00:49 Triage completed. tw5 00:49 Arm band placed on right wrist. tw5 00:55 Jose Thomas MD is Attending Physician. damir 00:55 Myrna Joy RN is Primary Nurse. sm5 01:30 Troponin HS Sent. sm5 01:30 PT-INR Sent. sm5 01:30 NT PRO-BNP Sent. sm5 01:30 Magnesium Sent. sm5 01:30 LFT's Sent. sm5 01:30 CBC with Diff Sent. sm5 01:30 Basic Metabolic Panel Sent. sm5 01:30 Lipase Sent. sm5 01:30 Inserted saline lock: 20 gauge in left antecubital area, using aseptic technique. Blood 5 collected. 01:55 SARS-COV-2 RT PCR (Document "Date of Onset" if Symptomatic) Sent. sm5 02:04 XRAY Chest (1 view) In Process Unspecified. EDMS 03:31 Abdomen In Process Unspecified. EDMS 05:04 Bubba Castaneda DO is Referral Physician. damir 05:05 Jhonny Vnicent MD is Referral Physician. [facility] 05:09 Patient has correct armband on for positive identification. Bed in low position. Call 5 light in reach. Side rails up X2. 05:11 No provider procedures requiring assistance completed. 5 05:23 IV discontinued, intact, bleeding controlled, No redness/swelling at site. Pressure 5 dressing applied. Administered Medications: 01:49 Drug: NS 0.9% 1000 ml Route: IV; Rate: 1 bolus; Site: left antecubital; sm5 05:23 Follow up: IV Status: Completed infusion; IV Intake: 1000ml 5 01:49 Drug: ProTONIX (pantoprazole) 40 mg Route: IVP; Site: left antecubital; sm5 02:45 Follow up: Response: No adverse reaction 5 01:49 Drug: Zofran (Ondansetron) 4 mg Route: IVP; Site: left antecubital; sm5 02:45 Follow up: Response: No adverse reaction sm5 02:28 Drug: Ativan (LORazepam) 1 mg Route: IVP; Site: left antecubital; sm5 03:42 Follow up: Response: No adverse reaction 5 03:06 Drug: Potassium Chloride 20 mEq {Note: Administered with 100ml of NS at same rate.} jb4 Route: IV; Rate: per protocol; Site: left antecubital; 05:23 Follow up: IV Status: Completed infusion; IV Intake: 100ml 5 03:33 Drug: morphine 4 mg Route: IVP; Infused Over: 4 mins; Site: left antecubital; sm5 05:04 Follow up: Response: No adverse reaction 5 05:17 Drug: Ativan (LORazepam) 1 mg Route: IVP; Site: left antecubital; 5 05:22 Follow up: Response: No adverse reaction 5 Medication: 05:09 VIS not applicable for this client. 5 Intake: 05:23 IV: 100ml; Total: 100ml. sm5 05:23 IV: 1000ml; Total: 1100ml. 5 Outcome: 05:07 Discharge ordered by MD. reich 05:22 Discharged to home ambulatory, with significant other. 5 05:22 Condition: stable 05:22 Discharge instructions given to patient, significant other, Instructed on discharge instructions, follow up and referral plans. no drinking with medication, medication usage, Demonstrated understanding of instructions, follow-up care, medications, Prescriptions given X 6 05:24 Patient left the ED. 5 Signatures: Dispatcher [employer] EDMS Jose Thomas MD MD cha Bryson, James, RN RN jb4 Sabiha Rouse Tiffany tw5 Myrna Joy RN RN sm5
--- NOTE | 2022-01-15 05:07 | EDPHYS ---
Physician Documentation [facility] [place] Name: Katy Holman Age: 51 yrs Sex: Female : 1970 Arrival Date: 01/14/2022 Time: 23:43 Bed 3 Private MD: Leonel [facility] ED Physician Jose Thomas HPI: 01/15 02:14 This 51 yrs old Female presents to ER via Ambulatory with complaints of damir Abdominal Pain, Vomiting/Diarrhea. 02:14 The patient presents to the emergency department with nausea, vomiting, 2 times since damir the onset of symptoms, described as bilious. Onset: The symptoms/episode began/occurred 10 day(s) ago. Possible causes: unknown. The symptoms are aggravated by nothing. The symptoms are alleviated by nothing. Associated signs and symptoms: Pertinent positives: abdominal pain, diarrhea, nausea, vomiting. Severity of symptoms: At their worst the symptoms were moderate in the emergency department the symptoms are unchanged. The patient has experienced similar episodes in the past, several times. OFFICE 365 CONSULTANT: 00:49 LMP N/A - Hysterectomy tw Historical: - Allergies: 00:49 No Known Allergies; tw5 - PMHx: 00:49 Anxiety; Hypothyroidism; Panic Attacks; PTSD; Seizures; sleep problems; Ulcer; tw5 - Immunization history:: Flu vaccine is up to date. - Social history:: Smoking status: Patient reports the use of cigarette tobacco products, smokes one-half pack cigarettes per day. ROS: 02:15 Constitutional: Negative for fever, chills, and weight loss, Eyes: Negative for injury, damir pain, redness, and discharge, ENT: Negative for injury, pain, and discharge, Neck: Negative for injury, pain, and swelling, Cardiovascular: Negative for chest pain, palpitations, and edema, Respiratory: Negative for shortness of breath, cough, wheezing, and pleuritic chest pain, Back: Negative for injury and pain, : Negative for injury, bleeding, discharge, and swelling, MS/Extremity: Negative for injury and deformity, Skin: Negative for injury, rash, and discoloration, Neuro: Negative for headache, weakness, numbness, tingling, and seizure, Psych: Negative for depression, anxiety, suicide ideation, homicidal ideation, and hallucinations, Allergy/Immunology: Negative for hives, rash, and allergies, Endocrine: Negative for neck swelling, polydipsia, polyuria, polyphagia, and marked weight changes, Hematologic/Lymphatic: Negative for swollen nodes, abnormal bleeding, and unusual bruising. 02:15 Abdomen/GI: Positive for abdominal pain, nausea and vomiting, diarrhea, abdominal cramps. Exam: 02:15 Constitutional: This is a well developed, well nourished patient who is awake, alert, damir and in no acute distress. Head/Face: Normocephalic, atraumatic. Eyes: Pupils equal round and reactive to light, extra-ocular motions intact. Lids and lashes normal. Conjunctiva and sclera are non-icteric and not injected. Cornea within normal limits. Periorbital areas with no swelling, redness, or edema. ENT: Nares patent. No nasal discharge, no septal abnormalities noted. Tympanic membranes are normal and external auditory canals are clear. Oropharynx with no redness, swelling, or masses, exudates, or evidence of obstruction, uvula midline. Mucous membranes moist. Neck: Trachea midline, no thyromegaly or masses palpated, and no cervical lymphadenopathy. Supple, full range of motion without nuchal rigidity, or vertebral point tenderness. No Meningismus. Chest/axilla: Normal chest wall appearance and motion. Nontender with no deformity. No lesions are appreciated. Cardiovascular: Regular rate and rhythm with a normal S1 and S2. No gallops, murmurs, or rubs. Normal PMI, no JVD. No pulse deficits. Respiratory: Lungs have equal breath sounds bilaterally, clear to auscultation and percussion. No rales, rhonchi or wheezes noted. No increased work of breathing, no retractions or nasal flaring. Back: No spinal tenderness. No costovertebral tenderness. Full range of motion. Skin: Warm, dry with normal turgor. Normal color with no rashes, no lesions, and no evidence of cellulitis. MS/ Extremity: Pulses equal, no cyanosis. Neurovascular intact. Full, normal range of motion. Neuro: Awake and alert, GCS 15, oriented to person, place, time, and situation. Cranial nerves II-XII grossly intact. Motor strength 5/5 in all extremities. Sensory grossly intact. Cerebellar exam normal. Normal gait. Psych: Awake, alert, with orientation to person, place and time. Behavior, mood, and affect are within normal limits. 02:15 Abdomen/GI: Inspection: abdomen appears normal, Bowel sounds: normal, Palpation: mild abdominal tenderness, in all quadrants, Liver: no appreciated palpable abnormalities, Hernia: not appreciated. 02:51 ECG was reviewed by the Attending Physician. [facility] Vital Signs: 00:46 BP 129 / 81; Pulse 92; Resp 18; Temp 99.5(O); Pulse Ox 100% on R/A; Weight 70.76 kg; tw5 Height 5 ft. 4 in. (162.56 cm); Pain 6/10; 02:15 BP 132 / 75; Pulse 68; Resp 23; Pulse Ox 99% on R/A; sm5 03:45 BP 106 / 78; Pulse 67; Resp 10; Pulse Ox 94% on R/A; sm5 05:00 BP 110 / 68; Pulse 76; Resp 18; Pulse Ox 95% on R/A; sm5 00:46 Body Mass Index 26.78 (70.76 kg, 162.56 cm) tw5 MDM: 00:55 Patient medically screened. [facility] 02:19 Differential diagnosis: Nonspecific abd pain, gastritis, cholecystitis, pancreatitis, damir appendicitis, diverticulitis, viral gastroenteritis, gastroenteritis. Data reviewed: vital signs, nurses notes, lab test result(s), radiologic studies, CT scan. Data interpreted: monitor technician: rate is 92 beats/min, rhythm is regular, Pulse oximetry: is not applicable for this patient encounter. on room air is 100 %. Counseling: I had a detailed discussion with the patient and/or guardian regarding: the historical points, exam findings, and any diagnostic results supporting the discharge/admit diagnosis, lab results, radiology results. 01/15 00:55 Order name: Basic Metabolic Panel; Complete Time: 02:47 [facility] 01/15 00:55 Order name: CBC with Diff; Complete Time: 02:47 [facility] 01/15 00:55 Order name: LFT's; Complete Time: 02:47 [facility] 01/15 00:55 Order name: Magnesium; Complete Time: 02:48 [facility] 01/15 00:55 Order name: NT PRO-BNP; Complete Time: 02:48 [facility] 01/15 00:55 Order name: PT-INR; Complete Time: 02:48 [facility] 01/15 00:55 Order name: Troponin HS; Complete Time: 02:48 [facility] 01/15 00:55 Order name: XRAY Chest (1 view) [facility] 01/15 00:55 Order name: Lipase; Complete Time: 02:47 [facility] 01/15 00:55 Order name: SARS-COV-2 RT PCR (Document "Date of Onset" if Symptomatic); Complete Time: damir 02:53 01/15 02:14 Order name: CT Abd/Pelvis - IV Contrast Only [facility] 01/15 02:18 Order name: Abdomen ; Complete Time: 04:15 EDMS 01/15 00:55 Order name: EKG; Complete Time: 00:56 [facility] 01/15 00:55 Order name: Cardiac monitoring; Complete Time: 01:56 [facility] 01/15 00:55 Order name: EKG - Nurse/Tech; Complete Time: 01:56 [facility] 01/15 00:55 Order name: IV Saline Lock; Complete Time: 01:30 [facility] 01/15 00:55 Order name: Labs collected and sent; Complete Time: 01:30 [facility] 01/15 00:55 Order name: O2 Per Protocol; Complete Time: 01:30 [facility] 01/15 00:55 Order name: O2 Sat Monitoring; Complete Time: 01:30 [facility] 01/15 02:53 Order name: PO challenge: juice; Complete Time: 03:07 [facility] EC:51 Rate is 76 beats/min. Rhythm is regular. QRS [place] is Normal. [place] interval is normal. QRS damir interval is normal. QT interval is normal. No Q waves. T waves are Inverted in leads aVF, V1, V2, V3, V4, V5. Clinical impression: NSR w/ Non-specific ST/T Changes and No evidence of ischemia. Interpreted by me. Reviewed by me. Administered Medications: :49 Drug: NS 0.9% 1000 ml Route: IV; Rate: 1 bolus; Site: left antecubital; 5 05:23 Follow up: IV Status: Completed infusion; IV Intake: 1000ml 5 01:49 Drug: ProTONIX (pantoprazole) 40 mg Route: IVP; Site: left antecubital; 5 02:45 Follow up: Response: No adverse reaction 5 01:49 Drug: Zofran (Ondansetron) 4 mg Route: IVP; Site: left antecubital; sm5 02:45 Follow up: Response: No adverse reaction 5 02:28 Drug: Ativan (LORazepam) 1 mg Route: IVP; Site: left antecubital; sm5 03:42 Follow up: Response: No adverse reaction 5 03:06 Drug: Potassium Chloride 20 mEq {Note: Administered with 100ml of NS at same rate.} jb4 Route: IV; Rate: per protocol; Site: left antecubital; 05:23 Follow up: IV Status: Completed infusion; IV Intake: 100ml 5 03:33 Drug: morphine 4 mg Route: IVP; Infused Over: 4 mins; Site: left antecubital; 5 05:04 Follow up: Response: No adverse reaction 5 05:17 Drug: Ativan (LORazepam) 1 mg Route: IVP; Site: left antecubital; 5 05:22 Follow up: Response: No adverse reaction 5 Disposition Summary: 01/15/22 05:07 Discharge Ordered Location: Home damir Problem: new damir Symptoms: have improved damir Condition: Stable damir Diagnosis - Abdominal pain, Generalized damir - Left sided colitis with rectal bleeding - Proctocolitis damir - Diarrhea, unspecified damir - Vomiting damir - Hypokalemia damir Followup: damir - With: Bubba Castaneda DO - When: 2 - 3 days - Reason: Recheck today's complaints, Continuance of care, Re-evaluation by your physician Followup: damir - With: Jhonny Vincent MD - When: 2 - 3 days - Reason: Recheck today's complaints, Continuance of care, Re-evaluation by your physician Discharge Instructions: - Discharge Summary Sheet damir - Abdominal Pain, Adult damir - Food Choices to Help Relieve Diarrhea, Adult damir - Diarrhea, Adult damir - Ulcerative Colitis, Adult damir - Potassium Content of Foods damir - Abdominal Pain, Adult, [id number] damir - Diarrhea, Adult, [id number] damir - Vomiting, Adult damir - Hypokalemia damir Forms: - Medication Reconciliation Form damir - Thank You Letter damir - Antibiotic Education damir - Prescription Opioid Use [facility] Prescriptions: - Flagyl 500 mg Oral Tablet - take 1 tablet by ORAL route every 8 hours for 10 days; 30 tablet; Refills: 0, [facility] Product Selection Permitted - Pepcid 20 mg Oral Tablet - take 1 tablet by ORAL route every 12 hours for 15 days; 30 tablet; Refills: 0, [facility] Product Selection Permitted - Zofran 4 mg Oral Tablet - take 1 tablet by ORAL route every 12 hours As needed; 20 tablet; Refills: 0, [facility] Product Selection Permitted - Cipro 500 mg Oral Tablet - take 1 tablet by ORAL route every 12 hours for 7 days; 14 tablet; Refills: 0, [facility] Product Selection Permitted - promethazine 25 mg Oral Tablet - take 1 tablet by ORAL route every 6 hours As needed; 20 tablet; Refills: 0, [facility] Product Selection Permitted - dicyclomine 20 mg Oral Tablet - take 1 tablet by ORAL route 4 times per day; 28 tablet; Refills: 0, Product [facility] Selection Permitted Signatures: Dispatcher [employer] Jose Munoz MD MD cha Bryson, James, RN RN jb4 Dayna Hernandez 5 Myrna Joy RN RN sm5
[2022-01-15 05:38] VITALS: TEMP 99.5
[2022-01-15 05:46] VITALS: BP 110/68; O2SAT 95
--- NOTE | 2022-01-16 12:55 | RAD REPORT ---
EXAM DESCRIPTION: RAD - Chest Single View - 01/15/2022 2:03 am CLINICAL HISTORY: The patient is 51 years old and is Female; ABDOMINAL DISTENTION TECHNIQUE: Frontal view of the chest. COMPARISON: No relevant prior studies available. FINDINGS: Lungs: Unremarkable. No consolidation. Pleural space: Unremarkable. No pneumothorax. Heart: Unremarkable. Mediastinum: Unremarkable. Bones/joints: Unremarkable. IMPRESSION: No acute findings in the chest. Electronically signed by: Oneil Grier MD 01/15/2022 6:14 AM CDT Due to temporary technical issues with the PACS/Fluency reporting system, reports are being signed by the in house radiologists without review as a courtesy to insure prompt reporting. The interpreting radiologist is fully responsible for the content of the report.
--- NOTE | 2022-01-17 08:01 | EKG ---
Test Date: 2022-01-15 Test Time: 01:53:22 Medical Billing Clerk: JAREN MEASUREMENT RESULTS: Intervals: Rate: 76 NE: 170 QRSD: 94 QT: 390 QTc: 438 [place]: P: 36 NE: 170 QRS: 9 T: -8 INTERPRETIVE STATEMENTS: Normal sinus rhythm Nonspecific T wave abnormality Abnormal ECG Compared to ECG 01/02/2022 10:33:55 No significant changes Electronically Signed On 01-17-22 07:55:55 CDT by Soy Chauhan
== END 2022-01-15 05:24 | disposition home or self-care (01) ==
LOC: ER 23:43
DX: K51.511 Left sided colitis with rectal bleeding (principal); E87.6 Hypokalemia; R11.10 Vomiting, unspecified; R19.7 Diarrhea, unspecified; Z20.822 Contact with and (suspected) exposure to COVID-19; F17.210 Nicotine dependence, cigarettes, uncomplicated
CPT/HCPCS: 96365; 96361; 93005; 85025; 80048; 36415; 83735; 85610; 80076; 84484; 83690; 83880; 74177; 71045; 96375; 99284; 96366; U0003; Q9967; C9113; J3480; J7030; J2405

== ENCOUNTER 2025-02-18 16:39 | Emergency (ER) | payer OTHER ==
[2025-02-18] MEDS ORDERED: ONDANSETRON 4 MG/2 ML VIAL ONE ×2 (17:21→19:34)
[2025-02-18] MEDS ORDERED: FAMOTIDINE 20 MG/2 ML VIAL IV ONE (17:22)
[2025-02-18] MEDS ORDERED: NA CHLORIDE 0.9% 1,000 ML ONE (17:22)
[2025-02-18] MEDS ORDERED: PANTOPRAZOLE 40 MG INJ ONE (17:22)
[2025-02-18 17:26] LABS: Absolute Lymphocytes (CBC) 2.4 K/uL (0.7-4.9); Hematocrit 38.8 % (36.0-45.0); Hemoglobin 13.6 g/dL (12.0-15.0); MCH 31.0 pg (27.0-35.0); MCHC 35.0 g/dL (32.0-36.0); MCV 88.4 fL (80-100); MPV 6.6 fL (7.6-11.3); Nucleated RBC Absolute Count 0.0 (0-0); Nucleated Red Blood Cells % 0.2 % (0-0); RBC Red Blood Cell Count 4.39 M/uL (3.86-4.86); White Blood Count 6.40 thou/uL (4.3-10.9)
[2025-02-18 17:44] LABS: ALT/SGPT 15 U/L (13-56); Albumin 3.5 g/dL (3.4-5.0); Albumin/Globulin Ratio 1.3 (1.1-1.8); Alkaline Phosphatase 90 U/L (45-117); Anion Gap 8.3 mEq/L (5.0-15.0); BUN Blood Urea Nitrogen 10 mg/dL (7-18); Globulin 2.7 g/dL (2.3-3.5); Glucose Level 196 mg/dL (74-106); Lipase 46 U/L (13-75); Potassium 3.3 mEq/L (3.5-5.1)
[2025-02-18 18:32] LABS: AST/SGOT < 10 U/L (15-37)
--- NOTE | 2025-02-18 19:44 | RAD REPORT ---
EXAMINATION: Abdomen Pelvis W Contrast CLINICAL INDICATION: Female, 54 years old.Rectal Bleeding TECHNIQUE: CT abdomen and pelvis was performed, after the administration of IV contrast, [facility] Axial, sagittal and coronal reconstructions were obtained. One or more of the following dose reduction techniques were used: Automated exposure control, adjustment of the mA and/o r kV according to patient size, and/or iterative reconstruction. Unless otherwise specified, incidental findings do not require dedicated imaging follow-up. [id number]. COMPARISON: 01/15/2022 FINDINGS: LOWER CHEST: No acute process identified.No significant pericardial effusion. Moderate circumferentia l thickening of the distal esophagus which could reflect esophagitis. Endoscopy could better evaluate. UPPER GI: Wall thickening at the pyloric region. This is similar. LIVER: Hepatomegaly with steatosis. GALLBLADDER/BILE DUCTS: Cholecystectomy. Mild extra-hepatic biliary ductal dilatation is likely relat ed to the post-cholecystectomy state. Consider correlating with LFT's.? PANCREAS: No mass, ductal dilation, or aidan-pancreatic fluid. SPLEEN: Unremarkable. ADRENALS: No adrenal masses. KIDNEYS AND URETERS: No hydronephrosis.No suspicious renal mass. ABDOMINAL AORTA AND OTHER VESSELS: Normal caliber aorta and IVC. PERITONEUM: No abnormal free fluid. No free air. LYMPH NODES: No pathologic lymphadenopathy. ABDOMINAL WALL: Small fat containing umbilical hernia. SMALL BOWEL/COLON: Small bowel has normal course and caliber. No colonic wall thickening or pericolon ic inflammatory changes. Moderate diverticulosis without Moderate to large formed stool burden. URINARY BLADDER: Underdistended but grossly unremarkable. REPRODUCTIVE ORGANS: Uterus surgically absent. No adnexal abnormality. MUSCULOSKELETAL: No acute or suspicious osseous abnormality. ADDITIONAL FINDINGS: None. IMPRESSION: No acute findings within the abdomen or pelvis. Moderate to large colonic stool burden suggesting con stipation. Similar wall thickening at the pylorus concerning for underlying gastritis or peptic ulcer disease. Moderately thickened distal esophagus likely reflecting esophagitis.
--- NOTE | 2025-02-18 19:51 | EDPHYS ---
Physician Documentation [facility] Name: Katy Holman Age: 54 yrs Sex: Female : 1970 Arrival Date: 02/18/2025 Time: 16:39 Bed 17 Private MD: ED Physician Rona Castaneda HPI: 02/18 19:23 This 54 yrs old Female presents to ER via Ambulatory with complaints of dr5 Rectal Bleeding. 19:23 The patient presents to the emergency department with bleeding from the rectum/anus, dr5 that is mild. Onset: The symptoms/episode began/occurred 4 day(s) ago. Onset: The symptoms/episode began/occurred acutely. Patient is a 54-year-old female with history of anxiety, hypothyroidism, PTSD, seizures, peptic ulcers coming in with 4 days of mild rectal bleeding that worsened today. Patient reports that she has a history of hemorrhoids as well as peptic ulcer disease. . 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 - Infectious Disease History:: Denies. - Social history:: Smoking status: Patient reports the use of cigarette tobacco products, smokes one-half pack cigarettes per day. ROS: 19:24 Constitutional: as per hpi dr5 Exam: 19:24 Constitutional: This is a well developed, well nourished patient who is awake, alert, dr5 and in no acute distress. Head/Face: Normocephalic, atraumatic. Eyes: Pupils equal round and reactive to light, extra-ocular motions intact. Lids and lashes normal. Conjunctiva and sclera are non-icteric and not injected. Cornea within normal limits. Periorbital areas with no swelling, redness, or edema. Neck: Trachea midline, no thyromegaly or masses palpated, and no cervical lymphadenopathy. Supple, full range of motion without nuchal rigidity, or vertebral point tenderness. No Meningismus. Chest/axilla: Normal chest wall appearance and motion. Nontender with no deformity. No lesions are appreciated. Cardiovascular: Regular rate and rhythm with a normal S1 and S2. Normal PMI, no JVD. No pulse deficits. Respiratory: Lungs have equal breath sounds bilaterally, clear to auscultation. No rales, rhonchi or wheezes noted. No increased work of breathing, no retractions or nasal flaring. Abdomen/GI: Soft, non-tender, non-distended Back: No spinal tenderness. No costovertebral tenderness. Full range of motion. Skin: Warm, dry with normal turgor. Normal color with no rashes, no lesions, and no evidence of cellulitis. MS/ Extremity: Pulses equal, no cyanosis. Neurovascular intact. Full, normal range of motion. Neuro: Awake and alert, GCS 15, oriented to person, place, time, and situation. Cranial nerves II-XII grossly intact. Motor strength 5/5 in all extremities. Sensory grossly intact. Cerebellar exam normal. Normal gait. 19:26 : Rectal exam: Perineal sensation Normal hemorrhoid(s), external, inflammed, are dr5 present, CLYDE Mixon bead wrapper and present during exam., Vital Signs: 16:56 BP 114 / 73; Pulse 93; Resp 17; Temp 98.4; Pulse Ox 100% ; Weight 57.61 kg; Height 5 me1 ft. 3 in. ; Pain 0/10; 17:50 BP 105 / 55; Pulse 70; Resp 18; Pulse Ox 98% ; Pain 0/10; rg5 18:45 BP 121 / 60; Pulse 75; Resp 18; Pulse Ox 99% ; rg5 19:39 BP 119 / 67; Pulse 73; Resp 17; Pulse Ox 98% on R/A; rg5 16:56 Body Mass Index 22.50 (57.61 kg, 160.02 cm) me1 16:56 Pain Scale: Adult me1 17:50 Pain Scale: Adult rg5 MDM: 16:48 Medical Screening Exam initiated dr5 19:52 Differential diagnosis: hemorrhoids, fissure, abscess, viral Infection, dr5 gastroenteritis. Data reviewed: vital signs, nurses notes, lab test result(s), CBC, white blood cell count, hemoglobin, hematocrit, platelets, electrolytes, sodium, potassium, chloride, serum bicarbonate, BUN, creatinine, serum glucose, radiologic studies, CT scan. Consideration of Admission/Observation Escalation of care including admission/observation considered. Escalation considered patient found to have rectal bleeding.. 02/18 17:06 Order name: CBC with Diff; Complete Time: 17:41 dr5 02/18 17:06 Order name: CMP; Complete Time: 19:07 dr5 02/18 17:06 Order name: Lipase; Complete Time: 19:07 dr5 02/18 17:06 Order name: CT Abd/Pelvis - IV Contrast Only; Complete Time: 19:51 dr5 02/18 17:06 Order name: IV Saline Lock; Complete Time: 17:19 dr5 02/18 17:06 Order name: Labs collected and sent; Complete Time: 17:19 dr5 Administered Medications: 17:20 Drug: Ondansetron IVP 4 mg IVP once; over 2 minutes Route: IVP; Site: right antecubital;rg5 17:52 Follow up: Response: No adverse reaction rg5 17:20 Drug: NS 0.9% IV 1000 ml IV at 1 bolus Per protocol; to be given as a bolus over 60 rg5 minutes Route: IV; Rate: 1 bolus; Site: left antecubital; 18:29 Follow up: Response: No adverse reaction; IV Status: Completed infusion; IV Intake: kc6 1000ml 17:20 Drug: Pantoprazole IVP 40 mg IVP once Route: IVP; Site: right antecubital; rg5 17:52 Follow up: Response: No adverse reaction rg5 17:20 Drug: Famotidine IVP 10 mg IVP once; dilute with 10 mL 0.9% NaCl; give over 2 minutes rg5 Route: IVP; Site: right antecubital; 17:52 Follow up: Response: No adverse reaction rg5 19:46 Drug: Ondansetron IVP 4 mg IVP once; over 2 minutes Route: IVP; Site: right forearm; rg5 20:01 Follow up: Response: No adverse reaction; Pain is decreased rg5 Disposition Summary: 02/18/25 19:51 Discharge Ordered Notes: Location: Home dr5 Condition: Stable dr5 Diagnosis - Other hemorrhoids dr5 - Personal history of peptic ulcer disease dr5 Followup: dr5 - With: Emergency Department - When: As needed - Reason: Worsening of condition Followup: dr5 - With: Private Physician - When: 1 - 2 days - Reason: Recheck today's complaints, Continuance of care, Re-evaluation by your physician Discharge Instructions: - Discharge Summary Sheet dr5 - High-Fiber Eating Plan dr5 - Hemorrhoids dr5 - Peptic Ulcer, [id number] dr5 Forms: - Medication Reconciliation Form dr5 - Patient Portal Instructions dr5 - Leadership Thank You Letter dr5 Prescriptions: - Zofran 4 mg Oral Tablet - take 1 tablet ORAL route every 12 hours As needed; 20 tablet; Refills: 0, dr5 Product Selection Permitted Signatures: Dispatcher [employer] EDMS Dianna Cook RN RN me1 Roland Paige RN RN rg5 Bryan Goldstein FNP-C ARTIST SCIENTIFIC-Cdr5 Kelly Lane RN kc6 Corrections: (The following items were deleted from the chart) 17:06 17:06 CBC+H.LAB.BRZ ordered. EDMS EDMS 17:06 17:06 COMPREHENSIVE METABOLIC PANEL+C.LAB.BRZ ordered. EDMS EDMS 17:06 17:06 LIPASE+C.LAB.BRZ ordered. EDMS EDMS 17:07 17:07 Abdomen Pelvis W Con+CT.RAD.BRZ ordered. EDMS EDMS
--- NOTE | 2025-02-18 19:51 | ER ---
Nurse's Notes [facility] Name: Katy Holman Age: 54 yrs Sex: Female : 1970 Arrival Date: 02/18/2025 Time: 16:39 Bed 17 Private MD: Diagnosis: Other hemorrhoids;Personal history of peptic ulcer disease Presentation: 02/18 16:56 Chief complaint: Patient states: walking around today and noticed blood running down me1 her legs from her rectum. Has had rectal bleeding for 3-4 days with bowel movements. Reports gastric ulcer and hemorrhoids. Coronavirus screen: At this time, the client does not indicate any symptoms associated with coronavirus-19. Ebola Screen: No symptoms or risks identified at this time. Initial Sepsis Screen: Does the patient meet any 2 criteria? HR > 90 bpm. No. Patient's initial sepsis screen is negative. Does the patient have a suspected source of infection? No. Patient's initial sepsis screen is negative. Risk Assessment: Do you want to hurt yourself or someone else? Patient reports no desire to harm self or others. Onset of symptoms is unknown. 16:56 Method Of Arrival: [place] [facility] [place] 16:56 Acuity: HOWARD 3 me1 EIGHT SECTION BLOWER: 16:59 LMP N/A - Hysterectomy, Not me1 Historical: - Allergies: 16:59 No Known Allergies; me1 - PMHx: 16:59 Anxiety; Hypothyroidism; Panic Attacks; PTSD; Seizures; sleep problems; ULCER; me1 - PSHx: 16:59 section; Total abdominal hysterectomy; Cholecystectomy; me1 - Immunization history:: Adult Immunizations up to date. - Infectious Disease History:: Denies. - Social history:: Smoking status: Patient reports the use of cigarette tobacco products, smokes one-half pack cigarettes per day. Screenin:00 [facility] ED Fall Risk Assessment (Adult) History of falling in the last 3 months, rg5 including since admission No falls in past 3 months (0 pts) Confusion or Disorientation No (0 pts) Intoxicated or Sedated No (0 pts) Impaired Gait No (0 pts) Mobility Assist Device Used No (0 pt) Altered Elimination No (0 pt) Score/Fall Risk Level 3 or more points = High Risk Oriented to surroundings. Abuse screen: Denies threats or abuse. Nutritional screening: No deficits noted. Tuberculosis screening: No symptoms or risk factors identified. Assessment: 17:00 General: Appears in no apparent distress. Behavior is calm, cooperative, appropriate rg5 for age. 17:00 Pain: Complains of pain in abdomen Quality of pain is described as tender. Neuro: Level rg5 of Consciousness is awake, alert, obeys commands, Oriented to person, place, time, situation. Cardiovascular: Denies chest pain, Patient's skin is warm and dry. Respiratory: Airway is patent Trachea midline Respiratory effort is even, unlabored. GI: Reports bloating, bloody stool. : No signs and/or symptoms were reported regarding the genitourinary system. EENT: No signs and/or symptoms were reported regarding the EENT system. Derm: Skin is intact, Skin is dry, Skin is normal, Skin temperature is warm. Musculoskeletal: Circulation, motion, and sensation intact. Range of motion: intact in all extremities. 17:58 Reassessment: No changes from previously documented assessment. Patient and/or family rg5 updated on plan of care and expected duration. Pain level reassessed. Patient is alert, oriented x 3, equal unlabored respirations, skin warm/dry/pink. 18:35 Reassessment: No changes from previously documented assessment. Patient and/or family rg5 updated on plan of care and expected duration. Pain level reassessed. Patient is alert, oriented x 3, equal unlabored respirations, skin warm/dry/pink. 19:44 Reassessment: Patient and/or family updated on plan of care and expected duration. Pain rg5 level reassessed. Patient is alert, oriented x 3, equal unlabored respirations, skin warm/dry/pink. Patient states feeling better. Patient states symptoms have improved. Vital Signs: 16:56 BP 114 / 73; Pulse 93; Resp 17; Temp 98.4; Pulse Ox 100% ; Weight 57.61 kg; Height 5 me1 ft. 3 in. ; Pain 0/10; 17:50 BP 105 / 55; Pulse 70; Resp 18; Pulse Ox 98% ; Pain 0/10; rg5 18:45 BP 121 / 60; Pulse 75; Resp 18; Pulse Ox 99% ; rg5 19:39 BP 119 / 67; Pulse 73; Resp 17; Pulse Ox 98% on R/A; rg5 16:56 Body Mass Index 22.50 (57.61 kg, 160.02 cm) me1 16:56 Pain Scale: Adult me1 17:50 Pain Scale: Adult rg5 ED Course: 16:42 Patient arrived in ED. im 16:48 Bryan Goldstein FNP-C [facility]. dr5 16:48 Rona Castaneda MD is Attending Physician. dr5 16:59 Triage completed. me1 16:59 Arm band placed on Patient placed in an exam room. me1 17:00 Patient has correct armband on for positive identification. Placed in gown. Bed in low rg5 position. Side rails up X 1. Door closed. Noise minimized. Warm blanket given. 17:00 No provider procedures requiring assistance completed. Inserted saline lock: 20 gauge rg5 in right antecubital area, using aseptic technique. Blood collected. Flushed with 10 mL NS. 17:01 Roland Paige, RN is Primary Nurse. rg5 18:29 Assisted to bathroom. kc6 19:21 CT Abd/Pelvis - IV Contrast Only In Process Unspecified. EDMS 19:52 IV discontinued, bleeding controlled, No redness/swelling at site. Pressure dressing rg5 applied. 20:04 Provided Education on: post er care. rg5 Administered Medications: 17:20 Drug: Ondansetron IVP 4 mg IVP once; over 2 minutes Route: IVP; Site: right antecubital;rg5 17:52 Follow up: Response: No adverse reaction rg5 17:20 Drug: NS 0.9% IV 1000 ml IV at 1 bolus Per protocol; to be given as a bolus over 60 rg5 minutes Route: IV; Rate: 1 bolus; Site: left antecubital; 18:29 Follow up: Response: No adverse reaction; IV Status: Completed infusion; IV Intake: kc6 1000ml 17:20 Drug: Pantoprazole IVP 40 mg IVP once Route: IVP; Site: right antecubital; rg5 17:52 Follow up: Response: No adverse reaction rg5 17:20 Drug: Famotidine IVP 10 mg IVP once; dilute with 10 mL 0.9% NaCl; give over 2 minutes rg5 Route: IVP; Site: right antecubital; 17:52 Follow up: Response: No adverse reaction rg5 19:46 Drug: Ondansetron IVP 4 mg IVP once; over 2 minutes Route: IVP; Site: right forearm; rg5 20:01 Follow up: Response: No adverse reaction; Pain is decreased rg5 Medication: 17:00 VIS not applicable for this client. rg5 Intake: 18:29 IV: 1000ml; Total: 1000ml. kc6 Outcome: 19:51 Discharge ordered by . dr5 20:03 Discharged to home ambulatory, rg5 20:03 Condition: good 20:03 Instructed on discharge instructions, follow up and referral plans. Demonstrated understanding of instructions, follow-up care, medications, Prescriptions given X 1, 20:04 Patient left the ED. rg5 Signatures: Dispatcher [employer] EDKelly Thibodeaux RN RN kc6 Gloria Arzate Michelle RN RN me1 Roland Paige RN RN rg5 Bryan Goldstein, OPERATIONS SYSTEMS SPECIALIST-C OPERATIONS SYSTEMS SPECIALIST-[facility]5
[2025-02-18 20:40] VITALS: TEMP 98.4
[2025-02-18 20:44] VITALS: BP 119/67; O2SAT 98
== END 2025-02-18 20:04 | disposition home or self-care (01) ==
LOC: ER 16:39
DX: K64.8 Other hemorrhoids (principal); Z87.11 Personal history of peptic ulcer disease
CPT/HCPCS: 85025; 36415; 83690; 80053; 74177; 99284; Q9967; J2470; J2405 ×2; J7030